=== PATIENT | female | born 1960 | race Caucasian/White ===

== ENCOUNTER 2022-10-07 22:26 | Inpatient (IN) ==
[2022-10-07] MEDS ORDERED: fentaNYL citrate PF 100 MCG/2 ML VIAL ONE (22:37)
[2022-10-07] MEDS ORDERED: ceFAZolin 2000MG 2,000 MG/15 ML SYR IV STA (22:44)
[2022-10-07] MEDS ORDERED: fentaNYL citrate PF 100 MCG/2 ML VIAL IV STA (22:44)
[2022-10-07] MEDS ORDERED: DIPHTHERIA/TETANUS/PERTUSSIS Vaccine (Tdap, Age 7+yrs) 0.5mL SYR/VL IM ONE (22:44)
[2022-10-07] MEDS ORDERED: ONDANSETRON INJ 2 MG/ML 2 ML VIAL IV STA (22:44)
[2022-10-07] MEDS ORDERED: SODIUM CHLORIDE 0.9% 1000ML 1,000 ML IV SCH (22:45)
--- NOTE | 2022-10-07 22:46 | Emergency Department Note ---
Impression & Plan Ankle fracture, right ADMIT ED Provider Note HPI: The patient is a 62-year-old female who presents the emergency department with open fracture and dislocation of the right ankle. Patient states that approximately 45 minutes prior to arrival to the ED she was in the foyer of her home when she slipped on some urine from her pet dog that she did not see, she states she does not remember exactly what happened next but she had acute pain in her right ankle and her left knee. On arrival here to the ED the patient has obvious deformity of her left knee consistent with likely lateral patellar dislocation, patient is also noted to have an obvious deformity of the right ankle with lateral displacement of the right foot and a small bleeding wound to the medial aspect of the right ankle near the medial malleoli consistent with open fracture. Patient does have motor and sensory function intact distally in the toes of the right foot on arrival and does have a palpable dorsalis pedis pulse on arrival. Patient denies any other injuries, denies hitting her head, she is alert and oriented on arrival. Patient arrives via EMS, received morphine in route. ROS: - Per HPI Differential Diagnosis: Open fracture of the right ankle, trimalleolar fracture of the right ankle, left knee dislocation, left knee/patellar dislocation, left knee fracture amongst other potential pathologies. *Outpatient medications and allergy history reviewed. *Pertinent external medical records reviewed. 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 with approximately 1 cm open wound to the medial aspect of the right ankle with minimal active bleeding, no exposed bone, malformation of the left knee consistent with lateral patellar dislocation, there is a palpable dorsalis pedis pulse in the right foot, range of motion is intact distally in the digits of the right foot with capillary refill less than 2 seconds in the great toe of the right foot, there is a palpable dorsalis pedis pulse in the left foot on arrival with motor and sensory function also intact distally in the left foot Skin: No evidence of rash, small open wound to the medial aspect of the right ankle as noted above Neuro: Alert, no focal deficits Psychiatric: Cooperative engineering teacher: (As interpreted by myself): - An order was placed for continuous cardiac monitoring - Patient was noted to be in sinus rhythm with a rate of 95 EKG: (As interpreted by myself): Rate: 103 Rhythm: Sinus tachycardia Intervals: Within normal limits ST changes: No ST elevation Time: 2232 Interventions provided in ED: -IV morphine, IV Zofran, IV Reglan, IV fentanyl, IV Ancef, Tdap Right ankle fracture dislocation reduction: Patient was sedated with IV ketamine (please see separate procedure note for sedation details) Utilizing gentle traction with lateral pressure on the right foot, satisfactory alignment was achieved of the fracture/dislocation. Kerlix bandage with 4 x 4 was placed over the open component of the wound with good hemostasis achieved Soft gauze dressing was placed and long posterior splint placed by the ED warehouse technician under my supervision Long posterior splint was dressed with Kerlix bandage Patient tolerated the procedure well, on reassessment capillary refill is less than 2 seconds in the digits of the right foot, patient is able to move the digits of the right foot on command Right ankle fracture dislocation reduction #2: Posterior splint with overlying Kerlix dressing was removed Utilizing gentle traction with lateral pressure on the right foot, improved alignment was achieved in regards to lateral displacement of right ankle fracture dislocation Kerlix bandage with 4 x 4 was placed over the open component of the wound with good hemostasis achieved Soft gauze dressing was placed and long posterior splint placed by the ED warehouse technician under my supervision Short stirrup splint was placed over the long posterior splint Long posterior splint and short stirrup splint was dressed with Kerlix bandage Patient tolerated the procedure well, on reassessment capillary refill is less than 2 seconds in the digits of the right foot, patient is able to move the digits of the right foot on command Repeat x-ray imaging of the right ankle shows improved tibiotalar alignment of the fracture dislocation of the right ankle status post splint placement Medical Decision Making: Patient presented to the emergency department with an open fracture of the right ankle and apparent patellar dislocation of the left knee. Shortly after the patient arrived, given the degree of malformation of the right ankle I did have concern for neurovascular compromise developing in the R foot and therefore patient was given a dose of IV fentanyl and reduction was performed urgently at the bedside with improved alignment grossly. Patient tolerated this initial reduction well, neurovascular status remained intact with a palpable dorsalis pedis pulse following this reduction and motor and sensory function intact distally in the digits of the right foot On x-ray imaging patient has what appears to be a trimalleolar fracture with mortise disruption, there is an open component to the medial aspect of the right ankle with minimal active bleeding. X-ray imaging of the left knee also shows evidence of lateral patellar dislocation as well as suspected. Open wound to the medial aspect of the right ankle with mild bleeding did respond well to pressure with good hemostasis with a Kerlix bandage. I did discuss the patient 's presentation with on-call orthopedics, Dr. Jones, who reviewed the x-ray images, as well as photographs of the ankle malformation injury including the open component of the injury via [place] text. Dr. Jones recommended splint placement and reduction of the fracture/dislocation further and he will plan at this time for admission to the hospitalist service and operative intervention tomorrow. Following the initial reduction there is still significant displacement with mortise disruption of the right ankle therefore following our discussion patient opted for sedation for reduction of the fracture, as well as dislocation reduction of left-sided patellar dislocation noted on x-ray imaging of the left knee. Patient was sedated utilizing IV ketamine, this was performed by my colleague, Dr. Magallanes, please see his procedure note for full details of the sedation. In addition, Dr. Maglalanes performed successful reduction of the patient's left-sided patellar dislocation, please see his procedure note for details. Following reduction and posterior splint placement, x-ray imaging was reviewed again with on-call orthopedics, Dr. Jones, who at this time recommended placing a stirrup splint in addition to the posterior splint with some gentle pressure applied to the lateral aspect of the right foot to improve tibiotalar alignment, plan at this time is still per Dr. Jones is for operative intervention tomorrow afternoon. With the assistance of the ED warehouse technician and bedside RN, the initial posterior long splint was removed and a new posterior long splint and additional stirrup splint were then placed with gentle pressure applied to the lateral aspect of the right foot with goal of improved tibiotalar alignment of the fracture dislocation. This was performed successfully without the need for sedation, on reevaluation neurovascular function is intact distally in the digits of the right foot. Repeat x-ray imaging of the fracture dislocation following the second splint placement with both posterior and stirrup components does show improved alignment of the tibia on the talus per my interpretation. The patient was given multiple doses of pain medicine including fentanyl, morphine, given Zofran for nausea and then eventually Reglan as she had a second episode of vomiting while here in the ED. Patient's nausea and vomiting did improve with Reglan. I discussed all the above findings with the patient, she is in agreement for admission at this time and is aware that Dr. Jones will plan on operative intervention tomorrow. [facility] hospitalist service was consulted for admission and the patient was placed for admission in stable condition. Consultants: -Orthopedic Surgery, Dr. Jones -Hospitalist, Dr. Villalba Disposition discussion held by myself with: Patient Diagnosis: 1. Open fracture of the right ankle, acute 2. Left-sided patellar dislocation, acute Disposition: Admission Yash Pimentel DO Emergency Medicine Past Med/Surg History Medical History (Updated 10/08/22 @ 02:06 by Yash Pimentel DO) Arthritis Surgical History (Updated 08/19/22 @ 09:57 by Palak Hardy RN) H/O colonoscopy H/O tubal ligation History of bunionectomy Family History (Updated 08/19/22 @ 09:55 by Palak Hardy RN) Aunt Cancer Brother Diabetes Mother Stroke Father Hypertension Heart disease Social History (Updated 08/19/22 @ 09:51 by Palak Hardy RN) Smoking Status: Unknown if ever smoked Hx Alcohol Use: Yes Alcohol type: hard liquor Alcohol Intake Frequency: Monthly or Less Hx Substance Use: No Preferred Language: Urdu marital status: current occupational status: retired How many Children do You have: 1 Feels Safe at Home: Yes Diet: diabetic during the past year weight has: remained stable Allergies Allergies Allergy/AdvReac Type Severity Reaction Status Date / Time No Known Allergies Allergy Verified 10/07/22 22:54 Home Meds Home Medications Medication Instructions Recorded Confirmed amlodipine 10 mg tablet 10 mg PO DAILY 10/18/20 10/07/22 atenolol 50 mg tablet 50 mg PO DAILY 10/18/20 10/07/22 lisinopril 40 mg tablet 40 mg PO DAILY 10/18/20 10/07/22 magnesium oxide 400 mg (241.3 mg 400 mg PO DAILY 10/18/20 10/07/22 magnesium) tablet dulaglutide 1.5 mg/0.5 mL 3 mg subcut WK 08/19/22 10/07/22 subcutaneous pen injector (Trulicity) trazodone 50 mg tablet 50 mg PO HS 08/19/22 10/07/22 venlafaxine 150 mg 150 mg PO DAILY 08/19/22 10/07/22 capsule,extended release 24 hr acetaminophen 500 mg tablet 1,000 mg PO DIRECTED PRN Pain 10/07/22 10/07/22 (Tylenol Extra Strength) diphenhydramine 25 1 tab PO HS PRN Sleep 10/07/22 10/07/22 mg-acetaminophen 500 mg tablet (Tylenol PM Extra Strength) multivitamin 1 tab PO DAILY 10/07/22 10/07/22 Results & Data (ED) Vital Signs Vital Signs - 24 hr 10/07/22 22:37 10/07/22 22:33 10/07/22 22:59 Temperature 36.9 C Temperature Source Temporal Artery Scan Pulse Rate 97 H 104 H Pulse Rate [Right Finger] 104 H Pulse Rate from SpO2 Sensor Respiratory Rate 20 21 Respiratory Effort / Characteristics Non-Labored Spontaneous Respiratory Depth Normal Respiratory Pattern Regular Blood Pressure 131/99 Blood Pressure [Right Arm] 152/90 H Blood Pressure Mean 109 Blood Pressure Mean [Right Arm] 110 Pulse Oximetry 93 94 Oxygen Delivery Method Room Air Room Air Oxygen Flow Rate Sepsis Recent Fever Within 48 Hours No Sepsis New/Unexplained Change in Mental Status N/A Sepsis Action Taken by Nursing No Action Required End-Tidal CO2 10/07/22 23:31 10/07/22 22:34 10/07/22 22:35 Temperature Temperature Source Pulse Rate 105 H 102 H Pulse Rate [Right Finger] 99 H Pulse Rate from SpO2 Sensor 106 H 100 H Respiratory Rate 21 23 15 Respiratory Effort / Characteristics Respiratory Depth Respiratory Pattern Blood Pressure Blood Pressure [Right Arm] 152/90 H Blood Pressure Mean Blood Pressure Mean [Right Arm] 110 Pulse Oximetry 99 94 95 Oxygen Delivery Method Non-rebreather Oxygen Flow Rate 10 Sepsis Recent Fever Within 48 Hours Sepsis New/Unexplained Change in Mental Status Sepsis Action Taken by Nursing End-Tidal CO2 10/07/22 22:40 10/07/22 22:45 10/07/22 22:50 Temperature Temperature Source Pulse Rate 104 H 100 H 100 H Pulse Rate [Right Finger] Pulse Rate from SpO2 Sensor 104 H 100 H 102 H Respiratory Rate 21 20 16 Respiratory Effort / Characteristics Respiratory Depth Respiratory Pattern Blood Pressure Blood Pressure [Right Arm] Blood Pressure Mean Blood Pressure Mean [Right Arm] Pulse Oximetry 96 92 95 Oxygen Delivery Method Oxygen Flow Rate Sepsis Recent Fever Within 48 Hours Sepsis New/Unexplained Change in Mental Status Sepsis Action Taken by Nursing End-Tidal CO2 10/07/22 22:55 10/07/22 23:00 10/07/22 23:00 Temperature Temperature Source Pulse Rate 98 H 103 H Pulse Rate [Right Finger] Pulse Rate from SpO2 Sensor 99 H 105 H Respiratory Rate 21 21 Respiratory Effort / Characteristics Respiratory Depth Respiratory Pattern Blood Pressure 152/90 H Blood Pressure [Right Arm] Blood Pressure Mean 110 Blood Pressure Mean [Right Arm] Pulse Oximetry 93 94 Oxygen Delivery Method Oxygen Flow Rate Sepsis Recent Fever Within 48 Hours Sepsis New/Unexplained Change in Mental Status Sepsis Action Taken by Nursing End-Tidal CO2 10/07/22 23:05 10/07/22 23:10 10/07/22 23:15 Temperature Temperature Source Pulse Rate 98 H 98 H 100 H Pulse Rate [Right Finger] Pulse Rate from SpO2 Sensor 98 H 98 H 101 H Respiratory Rate 18 20 17 Respiratory Effort / Characteristics Respiratory Depth Respiratory Pattern Blood Pressure Blood Pressure [Right Arm] Blood Pressure Mean Blood Pressure Mean [Right Arm] Pulse Oximetry 94 90 91 Oxygen Delivery Method Oxygen Flow Rate Sepsis Recent Fever Within 48 Hours Sepsis New/Unexplained Change in Mental Status Sepsis Action Taken by Nursing End-Tidal CO2 10/07/22 23:20 10/07/22 23:25 10/07/22 23:30 Temperature Temperature Source Pulse Rate 101 H 102 H 99 H Pulse Rate [Right Finger] Pulse Rate from SpO2 Sensor 101 H 103 H 99 H Respiratory Rate 17 21 21 Respiratory Effort / Characteristics Respiratory Depth Respiratory Pattern Blood Pressure Blood Pressure [Right Arm] Blood Pressure Mean Blood Pressure Mean [Right Arm] Pulse Oximetry 93 91 100 Oxygen Delivery Method Oxygen Flow Rate Sepsis Recent Fever Within 48 Hours Sepsis New/Unexplained Change in Mental Status Sepsis Action Taken by Nursing End-Tidal CO2 39 31 10/07/22 23:31 10/07/22 23:31 10/07/22 23:35 Temperature Temperature Source Pulse Rate 100 H Pulse Rate [Right Finger] Pulse Rate from SpO2 Sensor 99 H Respiratory Rate 17 Respiratory Effort / Characteristics Respiratory Depth Respiratory Pattern Blood Pressure 152/90 H 160/96 H Blood Pressure [Right Arm] Blood Pressure Mean 110 117 Blood Pressure Mean [Right Arm] Pulse Oximetry 99 Oxygen Delivery Method Oxygen Flow Rate Sepsis Recent Fever Within 48 Hours Sepsis New/Unexplained Change in Mental Status Sepsis Action Taken by Nursing End-Tidal CO2 33 10/07/22 23:35 10/07/22 23:37 10/07/22 23:37 Temperature Temperature Source Pulse Rate 104 H 103 H Pulse Rate [Right Finger] Pulse Rate from SpO2 Sensor 103 H 103 H Respiratory Rate 15 10 L Respiratory Effort / Characteristics Respiratory Depth Respiratory Pattern Blood Pressure 178/112 H Blood Pressure [Right Arm] Blood Pressure Mean 134 Blood Pressure Mean [Right Arm] Pulse Oximetry 100 99 Oxygen Delivery Method Oxygen Flow Rate Sepsis Recent Fever Within 48 Hours Sepsis New/Unexplained Change in Mental Status Sepsis Action Taken by Nursing End-Tidal CO2 31 34 10/07/22 23:40 10/07/22 23:40 10/07/22 23:45 Temperature Temperature Source Pulse Rate 108 H Pulse Rate [Right Finger] Pulse Rate from SpO2 Sensor 109 H Respiratory Rate 9 L Respiratory Effort / Characteristics Respiratory Depth Respiratory Pattern Blood Pressure 174/107 H 169/110 H Blood Pressure [Right Arm] Blood Pressure Mean 129 129 Blood Pressure Mean [Right Arm] Pulse Oximetry 100 Oxygen Delivery Method Oxygen Flow Rate Sepsis Recent Fever Within 48 Hours Sepsis New/Unexplained Change in Mental Status Sepsis Action Taken by Nursing End-Tidal CO2 32 10/07/22 23:45 10/08/22 00:26 Temperature Temperature Source Pulse Rate 106 H Pulse Rate [Right Finger] 98 H Pulse Rate from SpO2 Sensor 107 H Respiratory Rate 11 L 16 Respiratory Effort / Characteristics Non-Labored Spontaneous Respiratory Depth Normal Respiratory Pattern Blood Pressure Blood Pressure [Right Arm] 161/99 H Blood Pressure Mean Blood Pressure Mean [Right Arm] 119 Pulse Oximetry 99 95 Oxygen Delivery Method Nasal Cannula Oxygen Flow Rate 2 Sepsis Recent Fever Within 48 Hours Sepsis New/Unexplained Change in Mental Status Sepsis Action Taken by Nursing End-Tidal CO2 37 Laboratory Data 10/07/22 22:36 10/07/22 22:36 Lab Results 10/07/22 10/07/22 10/07/22 Range/Units 22:36 22:36 22:36 WBC 9.82 (4.8-10.8) K/ul RBC 4.22 (4.20-5.40) M/uL Hgb 13.0 (12.0-16.0) g/dl Hct 37.8 (37.0-47.0) % MCV 89.6 (80.0-100.0) fL MCH 30.8 (25.0-34.0) pg MCHC 34.4 (32.0-36.0) g/dL RDW Std Deviation 43.1 (36.4-46.3) fL RDW Coeff of [place]yllan 13.2 (11.5-14.5) % Plt Count 239 (130-400) K/uL MPV 10.6 (9.4-12.4) fL Immature Gran % (Auto) 0.3 % Neut % (Auto) 63.6 % Lymph % (Auto) 25.4 % [place] % (Auto) 6.1 % Eos % (Auto) 3.8 % Baso % (Auto) 0.8 % Neut # (Auto) 6.25 (1.40-6.50) K/uL Lymph # (Auto) 2.49 (1.2-3.4) K/uL [place] # (Auto) 0.60 H (0.11-0.59) K/uL Eos # (Auto) 0.37 (0-0.50) K/uL Baso # (Auto) 0.08 (0-0.2) K/uL Immature Gran # (Auto) 0.03 (0.01-0.20) K/uL PT 11.2 (9.0-12.0) Seconds INR 1.0 (0.9-1.1) Sodium 136 (136-145) mmol/L Potassium 4.2 (3.5-5.1) mmol/L Chloride 105 (98-107) mmol/L Carbon Dioxide 23 (21-32) mmol/L Anion Gap 8 (3-11) BUN 24 H (6-23) mg/dl Creatinine 1.32 H (0.6-1.2) mg/dl Est Cr Clr Drug Dosing 62.9 ml/min Est GFR ( Amer) 50.3 ml/min Est GFR (Non-Af Amer) 43.4 ml/min BUN/Creatinine Ratio 18.2 (10-20) Glucose 143 H (70-99(Fasting)) mg/dl Calcium 9.3 (8.6-10.3) mg/dl Total Bilirubin 0.6 (0.2-1.0) mg/dl AST 18 (13-39) U/L ALT 16 (7-52) U/L Alkaline Phosphatase 53 (34-104) U/L Total Protein 7.4 (6.0-8.3) gm/dl Albumin 4.3 (3.4-5.0) gm/dl Globulin 3.1 (2.5-4.0) gm/dl Albumin/Globulin Ratio 1.4 (0.9-2) SARS-CoV-2, RNA, NAAT (NEGATIVE) 10/07/22 10/08/22 Range/Units 23:36 00:41 WBC (4.8-10.8) K/ul RBC (4.20-5.40) M/uL Hgb (12.0-16.0) g/dl Hct (37.0-47.0) % MCV (80.0-100.0) fL MCH (25.0-34.0) pg MCHC (32.0-36.0) g/dL RDW Std Deviation (36.4-46.3) fL RDW Coeff of [place]yllan (11.5-14.5) % Plt Count (130-400) K/uL MPV (9.4-12.4) fL Immature Gran % (Auto) % Neut % (Auto) % Lymph % (Auto) % [place] % (Auto) % Eos % (Auto) % Baso % (Auto) % Neut # (Auto) (1.40-6.50) K/uL Lymph # (Auto) (1.2-3.4) K/uL [place] # (Auto) (0.11-0.59) K/uL Eos # (Auto) (0-0.50) K/uL Baso # (Auto) (0-0.2) K/uL Immature Gran # (Auto) (0.01-0.20) K/uL PT (9.0-12.0) Seconds INR (0.9-1.1) Sodium (136-145) mmol/L Potassium (3.5-5.1) mmol/L Chloride (98-107) mmol/L Carbon Dioxide (21-32) mmol/L Anion Gap (3-11) BUN (6-23) mg/dl Creatinine (0.6-1.2) mg/dl Est Cr Clr Drug Dosing ml/min Est GFR ( Amer) ml/min Est GFR (Non-Af Amer) ml/min BUN/Creatinine Ratio (10-20) Glucose (70-99(Fasting)) mg/dl Calcium (8.6-10.3) mg/dl Total Bilirubin (0.2-1.0) mg/dl AST (13-39) U/L ALT (7-52) U/L Alkaline Phosphatase (34-104) U/L Total Protein (6.0-8.3) gm/dl Albumin (3.4-5.0) gm/dl Globulin (2.5-4.0) gm/dl Albumin/Globulin Ratio (0.9-2) SARS-CoV-2, RNA, NAAT NEGATIVE Cancelled (NEGATIVE) Administered Medications Discontinued Medications Diphtheria/Pertussis/Tetanus Vacc (Diphtheria/Tetanus/Pertussis Vaccine (Tdap, Age 7+Yrs) 0.5ml Syr/Vl) 0.5 ml IM .ONCE ONE Stop: 10/07/22 22:45 Last Admin: 10/07/22 22:53 Dose: 0.5 ml Documented By: ASW Fentanyl Citrate (Fentanyl Citrate Pf 100 Mcg/2 Ml Vial) Confirm Administered Dose 100 mcg .ROUTE .STK-MED ONE Stop: 10/07/22 22:38 Last Increment: 10/07/22 22:44 Dose: 50 mcg Documented By: ASW Fentanyl Citrate (Fentanyl Citrate Pf 100 Mcg/2 Ml Vial) 50 mcg IV NOW STA Stop: 10/07/22 22:45 Last Admin: 10/07/22 22:48 Dose: Not Given Documented By: ASW Sodium Chloride (Nss 1000ml) 1,000 mls @ 999 mls/hr IV .Q1H1M SAMANTHA Stop: 10/07/22 23:45 Last Infusion: 10/07/22 23:59 Dose: 0 mls/hr Documented By: Admin: 10/07/22 22:48 Dose: 999 mls/hr Documented By: ASW Cefazolin Sodium (Ancef 2000mg) 2,000 mg in 15 mls @ 3.75 mls/min IV NOW STA Stop: 10/07/22 22:47 Last Admin: 10/07/22 22:53 Dose: 3.75 mls/min Documented By: ESSENCEW Ketamine HCl (Ketamine Hcl Inj 50 Mg/Ml 10 Ml Vial) Confirm Administered Dose 500 mg .ROUTE .STK-MED ONE Stop: 10/07/22 23:26 Last Increment: 10/07/22 23:47 Dose: 100 mg Documented By: ASW Metoclopramide HCl (Metoclopramide Hcl Inj 5 Mg/Ml 2 Ml Vial) 10 mg IV NOW STA Stop: 10/08/22 00:45 Last Admin: 10/08/22 00:47 Dose: Not Given Documented By: ASW Metoclopramide HCl (Metoclopramide Hcl Inj 5 Mg/Ml 2 Ml Vial) Confirm Administered Dose 10 mg .ROUTE .STK-MED ONE Stop: 10/08/22 00:45 Last Admin: 10/08/22 00:47 Dose: 10 mg Documented By: ESSENCEW Morphine Sulfate (Morphine Sulfate 4 Mg/Ml 1 Ml Carp\Vial) Confirm Administered Dose 4 mg .ROUTE .STK-MED ONE Stop: 10/08/22 00:07 Last Admin: 10/08/22 00:14 Dose: 4 mg Documented By: KATYA Morphine Sulfate (Morphine Sulfate 4 Mg/Ml 1 Ml Carp\Vial) 4 mg IV NOW STA Stop: 10/08/22 00:11 Last Admin: 10/08/22 00:14 Dose: Not Given Documented By: ESSENCEW Ondansetron HCl (Ondansetron Inj 2 Mg/Ml 2 Ml Vial) 4 mg IV NOW STA Stop: 10/07/22 22:45 Last Admin: 10/07/22 22:48 Dose: 4 mg Documented By: ESSENCEW Discharge Plan Visit Data Chief Complaint: Ankle Pain Stated Complaint: FALL, OPEN ANKLE FX, KNEE DEFORMITY ED Provider: Yash Pimentel Discharge Problem: Ankle fracture, right Forms Stand Alone Forms: My [facility] Prescriptions Prescriptions: No Action venlafaxine 150 mg capsule,extended release 24hr 150 mg PO DAILY Trulicity 1.5 mg/0.5 mL pen injector 3 mg subcut WK Rx Instructions: SATURDAYS trazodone 50 mg tablet 50 mg PO HS magnesium oxide 400 mg (241.3 mg magnesium) tablet 400 mg PO DAILY amlodipine 10 mg tablet 10 mg PO DAILY lisinopril 40 mg Tablet 40 mg PO DAILY atenolol 50 mg tablet 50 mg PO DAILY multivitamin Tablet 1 tab PO DAILY acetaminophen [Tylenol Extra Strength] 500 mg Tablet 1,000 mg PO DIRECTED PRN (Reason: Pain) diphenhydramine-acetaminophen [Tylenol PM Extra Strength] 25-500 mg Tablet 1 tab PO HS PRN (Reason: Sleep) Referrals Referrals: Earnest West DO [Primary Care Provider] - Ankle fracture, right Qualifiers: Encounter type: initial encounter Fracture type: open
[2022-10-07 22:59] LABS: Basophils # (auto) 0.08 K/uL (0-0.2); Basophils % (auto) 0.8 %; Eosinophils # (auto) 0.37 K/uL (0-0.50); Eosinophils % (auto) 3.8 %; Hematocrit (blood only) 37.8 % (37.0-47.0); Immature Granulocytes # (auto) 0.03 K/uL (0.01-0.20); Immature Granulocytes % (auto) 0.3 %; Lymphocytes # (auto) 2.49 K/uL (1.2-3.4); Lymphocytes % (auto) 25.4 %; Mean Corpuscular Hemoglobin 30.8 pg (25.0-34.0); Mean Corpuscular Hgb Conc 34.4 g/dL (32.0-36.0); Mean Corpuscular Volume 89.6 fL (80.0-100.0); Mean Platelet Volume 10.6 fL (9.4-12.4); Monocytes % (auto) 6.1 %; Neutrophils # (auto) 6.25 K/uL (1.40-6.50); Neutrophils % (auto) 63.6 %; Platelet Count 239 K/uL (130-400); RDW Coefficient of Variation 13.2 % (11.5-14.5); RDW Standard Deviation 43.1 fL (36.4-46.3); Red Blood Count 4.22 M/uL (4.20-5.40); White Blood Count 9.82 K/ul (4.8-10.8)
[2022-10-07 23:17] LABS: Albumin Globulin Ratio 1.4 (0.9-2); Albumin Level 4.3 gm/dl (3.4-5.0); BUN Creatinine Ratio 18.2 (10-20); Bilirubin,Total 0.6 mg/dl (0.2-1.0); Calcium 9.3 mg/dl (8.6-10.3); Creatinine Clr Calc Pharmacy 62.9 ml/min; Est GFR (African American) 50.3 ml/min; Est GFR (Non-African American) 43.4 ml/min; Globulin 3.1 gm/dl (2.5-4.0); Potassium 4.2 mmol/L (3.5-5.1); Total Protein 7.4 gm/dl (6.0-8.3)
[2022-10-07] MEDS ORDERED: KETAMINE HCL INJ 50 MG/ML 10 ML VIAL ONE (23:25)
[2022-10-07 23:35] LABS: Prothrombin Time 11.2 Seconds (9.0-12.0)
--- NOTE | 2022-10-07 23:49 | Emergency Department Note ---
ED Visit Note Sedation note: I was asked by Dr. PERES to provide procedural sedation for this patient for reduction of a open fracture dislocation of the right ankle as well as a left patella dislocation. Personally evaluated the patient patient has a class III airway has had no anesthesia complications, last meal was at 7:30 PM this evening. Patient has consented and signed the consent form for sedation Patient was given 100 mg of IV ketamine without any complications and maintain her airway with pulse oximetry 100% with normal vital signs throughout the p rocedure Procedure for dislocation of left patella: Patient also had a closed reduction of the left patella dislocation by me with gentle traction of the lateral located patella with hyperextension. The patient tolerated the procedure well patient neurovascularly intact distally .
[2022-10-08] MEDS ORDERED: MoRPHine SULFATE 4 MG/ML 1 ML CARP\\VIAL ONE (00:06)
[2022-10-08] MEDS ORDERED: MoRPHine SULFATE 4 MG/ML 1 ML CARP\\VIAL IV STA (00:10)
[2022-10-08] MEDS ORDERED: METOCLOPRAMIDE HCL INJ 5 MG/ML 2 ML VIAL ONE (00:44)
[2022-10-08] MEDS ORDERED: METOCLOPRAMIDE HCL INJ 5 MG/ML 2 ML VIAL IV STA (00:44)
[2022-10-08] MEDS ORDERED: GLUCOSE 10 TAB/TUBE PO PRN (03:34)
[2022-10-08] MEDS ORDERED: GLUCAGON FOR INJ 1 MG VIAL SQ PRN (03:34)
[2022-10-08] MEDS ORDERED: GLUCOSE 40% GEL 15 GM TUBE PO PRN (03:34)
[2022-10-08] MEDS ORDERED: DEXTROSE 50% 50 ML SYRINGE IV PRN (03:34)
[2022-10-08] MEDS ORDERED: POLYETHYLENE (MIRALAX) 17 GM PACK PO PRN (03:34)
[2022-10-08] MEDS ORDERED: CARBOHYDRATES FOR HYPOGLYCEMIA PO PRN (03:34)
[2022-10-08] MEDS ORDERED: ACETAMINOPHEN 325 MG TAB PO PRN (03:34)
--- NOTE | 2022-10-08 05:03 | History & Physical Report ---
Date of Service October 08, 2022 Assessment & Plan (1) Ankle fracture, right: Plan: Patient is a 62-year-old female with past medical history of obesity, DCIS, hypertension, controlled DM 2, diabetic nephropathy who presents to the hospital for evaluation of ankle injury. Patient found to have right open ankle fracture and left patellar dislocation, both of which have been reduced. Patient is hemodynamically stable and neurovascularly intact. Patient will be admitted to the hospital with orthopedic surgical consultation. -Admit to [facility] [place] -orthopedic surgery consulted, appreciate recommendations. Surgical intervention to be done on 10/08/2022 -N.p.o. Medications converted to IV where able -Pain control with IV morphine as needed, IV Tylenol available as well -Zofran as needed (2) Left knee dislocation: Plan: - Status postreduction -Orthopedic consultation as above (3) Type 2 diabetes mellitus: Plan: - Controlled with last A1c from clinic at 6.1 in June of this year -Convert to basal bolus insulin with sliding scale -Carb consistent diet when able -Continue rosuvastatin 20 mg daily (4) Diabetic nephropathy: Plan: - Baseline GFR of approximately 45 -Currently at baseline (5) Hypertension: Plan: - N.p.o. 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 Soria for lumpectomy in October Plan Disposition: Admit to [facility] [place] for orthopedic procedure Diet: N.p.o. for now, LR at 150 cc/h DVT prophylaxis: SCDs on left leg, hold pharmacologic DVT prophylaxis until after surgical procedure CODE STATUS: Full code Admission and Anticipated Discharge Date Admission Date: October 08, 2022 History of Present Illness Chief Complaint: Ankle Pain Primary Care Provider: Earnest West DO Patient is a 62-year-old female with past medical history of obesity, DCIS, hypertension, controlled DM 2, diabetic nephropathy who presents to the hospital for evaluation of ankle injury. Unfortunately, it seems that the patient was at home when she was walking on the hard floor and her 4-year and she slipped on urine that was left by her dog that she did not see. She fell to the floor and does not recall exactly what happened, however, she recognized that she had immediate ankle pain on the right and left knee pain with gross deformities of both. She came to the emergency department via EMS for further treatment and recommendations. ED course: Patient was brought back evaluated by one of our ED providers. She had multiple x-rays that confirmed trimalleolar fracture with mortise disruption and open component of the medial malleolus on the right ankle. There is also lateral knee dislocation on the left knee. The case was discussed with Dr. Jones, the on-call orthopedic surgeon, who recommended splint placement and reduction of the fracture who will perform operative intervention on 10/08/2022. See ED provider notes for specific details regarding reduction and splinting. Lab work was overall unremarkable. Patient was given pain medication and the hospitalist service was consulted for admission to the hospital for further management with orthopedic consultation. Allergies Allergy/AdvReac Type Severity Reaction Status Date / Time No Known Allergies Allergy Verified 10/07/22 22:54 Home Medications Medication Instructions Recorded Confirmed Type amlodipine 10 mg tablet 10 mg PO DAILY 10/18/20 10/07/22 History atenolol 50 mg tablet 50 mg PO DAILY 10/18/20 10/07/22 History lisinopril 40 mg tablet 40 mg PO DAILY 10/18/20 10/07/22 History magnesium oxide 400 mg (241.3 mg 400 mg PO DAILY 10/18/20 10/07/22 History magnesium) tablet dulaglutide 1.5 mg/0.5 mL 3 mg subcut WK 08/19/22 10/07/22 History subcutaneous pen injector (Trulicity) trazodone 50 mg tablet 50 mg PO HS 08/19/22 10/07/22 History venlafaxine 150 mg 150 mg PO DAILY 08/19/22 10/07/22 History capsule,extended release 24 hr acetaminophen 500 mg tablet 1,000 mg PO DIRECTED PRN Pain 10/07/22 10/07/22 History (Tylenol Extra Strength) diphenhydramine 25 1 tab PO HS PRN Sleep 10/07/22 10/07/22 History mg-acetaminophen 500 mg tablet (Tylenol PM Extra Strength) multivitamin 1 tab PO DAILY 10/07/22 10/07/22 History Past Med/Surg History Medical History Arthritis Surgical History H/O colonoscopy H/O tubal ligation History of bunionectomy Family History Aunt Cancer Brother Diabetes Mother Stroke Father Hypertension Heart disease Social History Smoking Status: Never smoker Hx Alcohol Use: Yes Alcohol type: hard liquor Alcohol Intake Frequency: Monthly or Less Hx Substance Use: No Preferred Language: Greenlandic Communication Ability: Effective marital status: Current Living Situation: Family current occupational status: retired How many Children do You have: 1 Feels Safe at Home: Yes Safety Concerns: Feels Safe At This Time Diet: diabetic during the past year weight has: remained stable Assistive Devices: Denture - Upper and Glasses Review of Systems Review of Systems: All systems reviewed & are unremarkable except as noted in HPI & below Physical Exam Constitutional: WD/WN, vitals as above well developed, well nourished, cooperative and comfortable Eyes: + anicteric sclerae Neck: trachea midline, no thyromegaly Respiratory: normal respiratory effort, lungs clear to auscultation Cardiovascular: RRR, no murmur, no edema Gastrointestinal (Abdomen): normal bowel sounds, soft, nontender, no hepatosplenomegaly Musculoskeletal: Head/Neck/Chest: normocephalic and head atraumatic There is an obvious deformity of the right ankle consistent with open fracture with a small open wound just superior to the medial malleolus with no active bleeding. There is also a lateral patellar dislocation on the left with ecchymoses on the medial aspect of the left knee. Normal capillary refill of both great toes. Palpable pedal pulses bilaterally. Skin: no rashes, warm and dry Neurologic: awake Psychiatric: Orientation: alert and oriented x 3 Results & Data Results & Data Vital Signs (Past 12 Hours) Vital Signs Temp Pulse Pulse Resp BP BP Pulse Ox 10/08/22 04:22 10/08/22 03:38 36.6 C 95 H 18 159/80 H 95 10/08/22 02:46 86 10/08/22 02:50 10/08/22 01:30 100 H 16 132/87 97 10/08/22 01:00 100 H 16 131/89 93 10/08/22 00:30 94 H 16 156/93 H 94 10/08/22 00:25 100 H 16 161/99 H 94 10/08/22 00:15 94 H 16 148/84 H 96 10/08/22 00:10 94 H 16 146/86 H 96 10/08/22 00:05 94 H 16 154/84 H 96 10/08/22 00:00 96 H 16 157/89 H 98 10/08/22 01:49 93 H 20 95 10/08/22 00:26 98 H 16 161/99 H 95 10/07/22 23:45 106 H 11 L 99 10/07/22 23:45 169/110 H 10/07/22 23:40 108 H 9 L 100 10/07/22 23:40 174/107 H 10/07/22 23:37 103 H 10 L 99 10/07/22 23:37 178/112 H 10/07/22 23:35 104 H 15 100 10/07/22 23:35 160/96 H 10/07/22 23:31 152/90 H 10/07/22 23:31 100 H 17 99 10/07/22 23:30 99 H 21 100 10/07/22 23:25 102 H 21 91 10/07/22 23:20 101 H 17 93 10/07/22 23:15 100 H 17 91 10/07/22 23:10 98 H 20 90 10/07/22 23:05 98 H 18 94 10/07/22 23:00 103 H 21 94 10/07/22 23:00 152/90 H 10/07/22 22:55 98 H 21 93 10/07/22 22:50 100 H 16 95 10/07/22 22:45 100 H 20 92 10/07/22 22:40 104 H 21 96 10/07/22 22:35 102 H 15 95 10/07/22 22:34 105 H 23 94 10/07/22 23:31 99 H 21 152/90 H 99 10/07/22 22:59 104 H 21 152/90 H 94 10/07/22 22:33 104 H 10/07/22 22:37 36.9 C 97 H 20 131/99 93 O2 Del Method O2 Flow Rate 10/08/22 04:22 Nasal Cannula 2 10/08/22 03:38 Nasal Cannula 2 10/08/22 02:46 10/08/22 02:50 Nasal Cannula 2 10/08/22 01:30 Nasal Cannula 2 10/08/22 01:00 Nasal Cannula 2 10/08/22 00:30 Nasal Cannula 2 10/08/22 00:25 Nasal Cannula 2 10/08/22 00:15 Nasal Cannula 2 10/08/22 00:10 Nasal Cannula 2 10/08/22 00:05 Nasal Cannula 2 10/08/22 00:00 Nasal Cannula 2 10/08/22 01:49 Nasal Cannula 2 10/08/22 00:26 Nasal Cannula 2 10/07/22 23:45 10/07/22 23:45 10/07/22 23:40 10/07/22 23:40 10/07/22 23:37 10/07/22 23:37 10/07/22 23:35 10/07/22 23:35 10/07/22 23:31 10/07/22 23:31 10/07/22 23:30 10/07/22 23:25 10/07/22 23:20 10/07/22 23:15 10/07/22 23:10 10/07/22 23:05 10/07/22 23:00 10/07/22 23:00 10/07/22 22:55 10/07/22 22:50 10/07/22 22:45 10/07/22 22:40 10/07/22 22:35 10/07/22 22:34 10/07/22 23:31 Non-rebreather 10 10/07/22 22:59 Room Air 10/07/22 22:33 10/07/22 22:37 Room Air Code Status & VTE Plan VTE Prophylaxis Plan VTE Prophylaxis will be ordered: Yes Supervising Physician Co-Signing Physician Notes Attending addendum: I have physically seen this patient, have supervised the medical residents activities, and agree with the H&P unless as otherwise noted. Assessment and Plan: Compound right ankle fracture- Reduced by the ED staff NPO Acetaminophen 1 g IV every 8 hours as needed mild pain or fever Morphine sulfate 4 mg IV every 3 hours as needed for moderate to severe pain Zofran 4 mg IV every 6 hours as needed Ceftriaxone 2 g IV daily Consult orthopedic surgery Left knee dislocation- Reduced by ED staff Consult orthopedic surgery Diabetes mellitus- N.p.o. placed on NovoLog with SSI Hypertension- Hold amlodipine and lisinopril Hydralazine 10 mg IV every 4 hours as needed systolic blood pressure greater than 160 Remaining orders and notations as noted (1) Ankle fracture, right Encounter type: initial encounter Fracture type: open
[2022-10-08] MEDS: MoRPHine SULFATE 2 MG/ML CARP IV PRN ×5 (05:21→18:18)
[2022-10-08] MEDS: LACTATED RINGER'S 1,000 ML IV SCH ×3 (05:22→19:57)
[2022-10-08 06:39] LABS: Hematocrit (blood only) 32.4 % (37.0-47.0); Hemoglobin 11.1 g/dl (12.0-16.0); Mean Corpuscular Hemoglobin 30.9 pg (25.0-34.0); Mean Corpuscular Hgb Conc 34.3 g/dL (32.0-36.0); Mean Corpuscular Volume 90.3 fL (80.0-100.0); Mean Platelet Volume 10.5 fL (9.4-12.4); Platelet Count 226 K/uL (130-400); RDW Coefficient of Variation 13.2 % (11.5-14.5); RDW Standard Deviation 43.3 fL (36.4-46.3); Red Blood Count 3.59 M/uL (4.20-5.40); White Blood Count 14.58 K/ul (4.8-10.8)
--- NOTE | 2022-10-08 06:48 | Hospitalist Progress Note ---
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 Soria outpatient Disposition: Ad[facility] to [facility] for [facility] procedure Diet: N.p.o. for now, LR at 150 cc/h DVT prophylaxis: SCDs on left leg, hold pharmacologic DVT prophylaxis until after surgical procedure CODE STATUS: Full code Admission and Anticipated Discharge Date Admission Date: October 08, 2022 Supervising Physician Co-Signing Physician Notes I personally examined the patient and verified all padilla points of history and exam, discussed case, and agree with decision making with Dr Hurley feeling ok, suspect O2 "requirement" is just that it hasn't been weaned vs less likely atelectasis. medically stable. appreciate ortho input. otherwise as above Subjective Patient is a 62-year-old female with past medical history of obesity, DCIS, hypertension, controlled DM 2, diabetic nephropathy admitted for right open ankle fracture and left patellar dislocation, both of which have been reduced. Patient is hemodynamically stable and neurovascularly intact. Patient will be admitted to the hospital with orthopedic surgical consultation. Pain well controlled this am. Awaiting surgery. Surgery cancelled 10/08/22, anticipate surgery 10/09/22. Review of Systems Review of Systems: reviewed, see HPI Physical Exam Physical Exam: General: patient resting comfortably, NAD, non-toxic in appearance, AA&O x 4, answers questions appropriately and follows commands. Skin: warm, dry, intact, no rashes or lesions HEENT: NC/AT, anicteric sclera, conjunctiva without injection, external ear normal to inspection, nares patent, moist mucus membranes, dentition intact, neck supple, trachea midline, no thyromegaly, no JVD Heart: +S1/S2, regular, no m/r/g Lungs: equal air entry bilaterally, no rales/rhonchi/wheezes Abd: +BS, soft, NT/ND, no masses/organomegaly/ascites Ext: warm, no clubbing/cyanosis or edema. R lower extremity splinted. L patella remains reduced Neuro: nonfocal, patient AA&O x 4, speech intact, no facial droop, moving all extremities on command. Results & Data Results & Data Vital Signs (Past 12 Hours) Vital Signs Height Weight Body Mass Index Blood Pressure Blood Pressure Position Temperature Temperature Source 5 ft 11 in 123.8 kg 38.0 159/80 H Lying 36.6 C Oral 10/08/22 03:38 10/08/22 03:38 10/08/22 03:38 10/08/22 03:38 10/08/22 03:38 10/08/22 03:38 10/08/22 03:38 Pulse Rate Respiratory Rate Pulse Oximetry Oxygen Flow Rate 95 H 18 95 2 10/08/22 03:38 10/08/22 03:38 10/08/22 03:38 10/08/22 04:22 Laboratory Results Abnormal lab results 10/07/22 10/07/22 10/08/22 Range/Units 22:36 22:36 05:58 WBC 14.58 H (4.8-10.8) K/ul RBC 3.59 L (4.20-5.40) M/uL Hgb 11.1 L (12.0-16.0) g/dl Hct 32.4 L (37.0-47.0) % Otero # (Auto) 0.60 H (0.11-0.59) K/uL BUN 24 H (6-23) mg/dl Creatinine 1.32 H (0.6-1.2) mg/dl Glucose 143 H (70-99(Fasting)) mg/dl Resident Activity Tracking Resident Involvement: Resident Care Provided Care Provided: Adult Hospital Medicine (1) Ankle fracture, right Encounter type: initial encounter Fracture type: open
[2022-10-08 07:17] LABS: BUN Creatinine Ratio 19.5 (10-20); Calcium 8.9 mg/dl (8.6-10.3); Creatinine Clr Calc Pharmacy 72.7 ml/min; Est GFR (African American) 57.6 ml/min; Est GFR (Non-African American) 49.7 ml/min; Potassium 4.4 mmol/L (3.5-5.1)
[2022-10-08 07:25] LABS: INR 1.1 (0.9-1.1); Prothrombin Time 11.5 Seconds (9.0-12.0)
[2022-10-08] MEDS: ONDANSETRON INJ 2 MG/ML 2 ML VIAL IV PRN ×2 (07:27→21:51)
--- NOTE | 2022-10-08 08:05 | XRay Report ---
XR ankle RT 2V CLINICAL HISTORY: open fracture reduction COMPARISON: Right ankle radiographs October 07, 2022 performed earlier today. FINDINGS: Overlying cast is noted. There has been no significant change in alignment of the comminut ed, displaced distal diaphyseal fracture of the right fibula as well as a displaced fracture of the m edial malleolus with disruption of the tibiotalar joint. Lateral view demonstrates soft tissue gas an terior to the distal right tibia and fibula consistent with open fracture. IMPRESSION: No significant change in alignment of the comminuted, displaced distal right fibular and tibial fractures with disruption of the tibiotalar joint. Associated soft tissue gas indicates an ope n fracture. ACT 112: Negative or not required by law. Electronically signed by: Rafi Astorga M.D. 10/08/2022 8:04 AM
--- NOTE | 2022-10-08 08:10 | XRay Report ---
RIGHT ANKLE 2 VIEWS CLINICAL HISTORY: Splinting of right ankle. FINDINGS: AP and crosstable lateral views of the right ankle are compared to studies dated 10/07/2022. The examination is performed through a splint, obscuring fine bony detail. There is improved alignme nt of a comminuted spiral fracture of the distal fibular shaft. There are large displaced fragments. There is a vertically oriented fracture of the posterior malleolus, as well as a displaced avulsion f racture of the medial malleolus. The medial malleolar fracture is displaced by approximately 6 mm. Ne ar-anatomic alignment has been restored at the ankle mortise. There is an associated joint effusion. Significant soft tissue swelling is seen around the ankle. Postsurgical change is partially visualize d in the base of the first metatarsal. There is a plantar heel spur. IMPRESSION: Improved alignment of a trimalleolar fracture as compared to previous. Near anatomic alig nment is restored at the ankle mortise. Electronically signed by: Marlon Jain M.D. 10/08/2022 8:09 AM
--- NOTE | 2022-10-08 08:10 | XRay Report ---
XR ankle RT 2V CLINICAL HISTORY: open fracture COMPARISON: Right foot radiographs September 13, 2020. FINDINGS: There is a comminuted, moderately displaced distal diaphyseal fracture of the right fibula . Note is also made of a displaced fracture of the medial malleolus as well as a fracture the posteri or distal right tibia consistent with a trimalleolar fracture. The tibial fracture extends to the ski n. The tibiotalar joint is disrupted. Ankle soft tissue swelling is present. IMPRESSION: Right ankle trimalleolar fracture/dislocation, as described above. Tibial fracture extend s to the skin and may represent an open fracture which could be correlated clinically. ACT 112: Negative or not required by law. Electronically signed by: Rafi Astorga M.D. 10/08/2022 8:08 AM
--- NOTE | 2022-10-08 08:15 | XRay Report ---
LEFT KNEE 2 VIEWS CLINICAL HISTORY: Postreduction examination. FINDINGS: AP and crosstable lateral views of the left knee are compared to study performed earlier th e same day 10/07/2022. The skeletal structures are osteopenic. There has been successful reduction of the dislocated patella with sikh of near-anatomic alignment. No fracture is clearly identified . Advanced degenerative change is seen at the patellofemoral articulation. Minimal narrowing is seen in the medial compartment. There are large marginal osteophytes and patellar enthesophytes. Bony over growth is seen posteriorly along the distal femur and the tibial plateau. There is a joint effusion. Marked prepatellar soft tissue edema is observed. IMPRESSION: 1. There has been successful reduction of the dislocated patella with sikh of near-anatomic al ignment. 2. No fracture is clearly identified by x-ray. If there is clinical concern for occult fracture at th e knee joint a CT scan should be obtained. 3. Joint effusion and marked prepatellar soft tissue swelling. Electronically signed by: Marlon Jain M.D. 10/08/2022 8:13 AM
--- NOTE | 2022-10-08 08:23 | XRay Report ---
LEFT KNEE 2 VIEWS CLINICAL HISTORY: Left knee injury. Deformity. FINDINGS: AP and crosstable lateral views of the left knee are obtained. No prior studies are availab le for comparison at the time of dictation. The skeletal structures are osteopenic. There is lateral dislocation of the patella. No fracture is clearly seen. The joint spaces are not well assessed due t o positioning. There is a joint effusion and marked prepatellar soft tissue swelling. Bony overgrowth is seen along the dorsal aspect of the distal femur and tibial plateau. There is atherosclerotic babak cification of the popliteal artery. IMPRESSION: 1. Lateral patellar dislocation. 2. No fracture is clearly seen. 3. Marked soft tissue swelling and joint effusion. Electronically signed by: Marlon Jain M.D. 10/08/2022 8:22 AM
[2022-10-08] MEDS: INSULIN ASPART PER UNIT CHARGE SC SCH ×4 (08:55→21:57)
[2022-10-08] MEDS: LANTUS PER UNIT CHARGE SQ SCH ×2 (08:57→21:57)
--- NOTE | 2022-10-08 10:17 | Orthopedic Consultation ---
Date of Consultation October 08, 2022 Assessment & Plan (1) Ankle fracture, right: Ankle fracture dislocation was reduced in the emergency room, is currently splinted. Case was discussed with Dr. Jones as well as reviewed with the patient, recommend surgical fixation with external fixator versus open reduction total fixation, will continue n.p.o., nonweightbearing to the right ankle. Plan for surgical intervention later this afternoon with Dr. Jones (2) Left knee dislocation: Patella dislocation was reduced in the emergency room, will continue with knee immobilizer, ice elevation for swelling. She can weight-bear as tolerated with the immobilizer on. States she has a history of patellar dislocations in her teenage years and early 20s. Will likely obtain MRI evaluation as outpatient for further evaluation History of Present Illness Reason for Consultation: right ankle fracture, left patella dislocation Attending Physician: Dayo Schumacher, DO History of Present Illness Zainab is a pleasant 62-year-old female who we are consulted in regards to right ankle fracture and left patella dislocation. She states yesterday evening was in her kitchen and slipped on urine from her puppy which caused her left leg to kick out of the side, which resulted in dislocation of her left kneecap and went down to the ground, she also had obvious deformity to her right ankle. She was brought to the emergency department by ambulance and was confirmed to have a left patella dislocation and right ankle fracture. She states she has a history of left knee issues dating back to when she was in the , has a history of several patellar dislocations. No p.revious injuries to the right ankle but has had bunion surgery on her right foot Allergies Allergy/AdvReac Type Severity Reaction Status Date / Time No Known Allergies Allergy Verified 10/07/22 22:54 Home Medications Medication Instructions Recorded Confirmed Type amlodipine 10 mg tablet 10 mg PO DAILY 10/18/20 10/07/22 History atenolol 50 mg tablet 50 mg PO DAILY 10/18/20 10/07/22 History lisinopril 40 mg tablet 40 mg PO DAILY 10/18/20 10/07/22 History magnesium oxide 400 mg (241.3 mg 400 mg PO DAILY 10/18/20 10/07/22 History magnesium) tablet dulaglutide 1.5 mg/0.5 mL 3 mg subcut WK 08/19/22 10/07/22 History subcutaneous pen injector (Trulicity) trazodone 50 mg tablet 50 mg PO HS 08/19/22 10/07/22 History venlafaxine 150 mg 150 mg PO DAILY 08/19/22 10/07/22 History capsule,extended release 24 hr acetaminophen 500 mg tablet 1,000 mg PO DIRECTED PRN Pain 10/07/22 10/07/22 History (Tylenol Extra Strength) diphenhydramine 25 1 tab PO HS PRN Sleep 10/07/22 10/07/22 History mg-acetaminophen 500 mg tablet (Tylenol PM Extra Strength) multivitamin 1 tab PO DAILY 10/07/22 10/07/22 History Patient History Medical History Arthritis Surgical History H/O colonoscopy H/O tubal ligation History of bunionectomy Family History Aunt Cancer Brother Diabetes Mother Stroke Father Hypertension Heart disease Social History Smoking Status: Never smoker Hx Alcohol Use: Yes Alcohol type: hard liquor Alcohol Intake Frequency: Monthly or Less Hx Substance Use: No Preferred Language: Armenian Communication Ability: Effective marital status: Current Living Situation: Family current occupational status: retired How many Children do You have: 1 Feels Safe at Home: Yes Safety Concerns: Feels Safe At This Time Diet: diabetic during the past year weight has: remained stable Assistive Devices: Denture - Upper and Glasses Review of Systems Review of Systems: All systems reviewed & are unremarkable except as noted in HPI & below Constitutional: no fever, no chills and no sweats Respiratory: no cough and no dyspnea Cardiovascular: no chest pain, no dyspnea and no orthopnea Gastrointestinal: no abdominal pain, no nausea and no vomiting Musculoskeletal: as per Subjective / HPI Physical Exam Physical Exam: Vital Signs Temp 36.5 C 10/08/22 06:50 Pulse 93 H 10/08/22 06:50 Resp 18 10/08/22 06:50 BP 127/75 10/08/22 06:50 Pulse Ox 94 10/08/22 10:19 O2 Del Method Nasal Cannula 10/08/22 10:19 O2 Flow Rate 2 10/08/22 10:19 Intake & Output 10/07/22 10/08/22 10/08/22 18:59 06:59 18:59 Intake Total 1000 / 1000 Output Total 400 / 400 Balance 1000 / 1000 -400 / -400 Weight 123.8 kg Intake: IV 1000 / 1000 Sodium Chlorid e 0.9% 1000ML 1, 1000 / 1000 000 ml @ 999 m ls/hr IV .Q1H1M [facility] Rx#:[id number] Output: Urine 400 / 400 Other: Weight Measureme nt Method Built in [facility] Constitutional: WD/WN, vitals as above no acute distress Respiratory: normal respiratory effort, lungs clear to auscultation no respiratory distress, no labored breathing and does not use accessory muscles Cardiovascular: RRR, no murmur, no edema Musculoskeletal: left knee: mild effusion, no erythema noted. calf soft, non-tender. DP +2. NVDI right ankle: ankle splinted, sensation intact to light touch toes, DP palpable, able to wiggle her toes Results & Data Vital Signs (Past 12 Hours) Vital Signs Temp Pulse Pulse Resp BP BP Pulse Ox 10/08/22 06:50 36.5 C 93 H 18 127/75 95 10/08/22 04:22 10/08/22 03:38 36.6 C 95 H 18 159/80 H 95 10/08/22 02:46 86 10/08/22 02:50 10/08/22 01:30 100 H 16 132/87 97 10/08/22 01:00 100 H 16 131/89 93 10/08/22 00:30 94 H 16 156/93 H 94 10/08/22 00:25 100 H 16 161/99 H 94 10/08/22 00:15 94 H 16 148/84 H 96 10/08/22 00:10 94 H 16 146/86 H 96 10/08/22 00:05 94 H 16 154/84 H 96 10/08/22 00:00 96 H 16 157/89 H 98 10/08/22 01:49 93 H 20 95 10/08/22 00:26 98 H 16 161/99 H 95 10/07/22 23:45 106 H 11 L 99 10/07/22 23:45 169/110 H 10/07/22 23:40 108 H 9 L 100 10/07/22 23:40 174/107 H 10/07/22 23:37 103 H 10 L 99 10/07/22 23:37 178/112 H 10/07/22 23:35 104 H 15 100 10/07/22 23:35 160/96 H 10/07/22 23:31 152/90 H 10/07/22 23:31 100 H 17 99 10/07/22 23:30 99 H 21 100 10/07/22 23:25 102 H 21 91 10/07/22 23:20 101 H 17 93 10/07/22 23:15 100 H 17 91 10/07/22 23:10 98 H 20 90 10/07/22 23:05 98 H 18 94 10/07/22 23:00 103 H 21 94 10/07/22 23:00 152/90 H 10/07/22 22:55 98 H 21 93 10/07/22 22:50 100 H 16 95 10/07/22 22:45 100 H 20 92 10/07/22 22:40 104 H 21 96 10/07/22 22:35 102 H 15 95 10/07/22 22:34 105 H 23 94 10/07/22 23:31 99 H 21 152/90 H 99 10/07/22 22:59 104 H 21 152/90 H 94 10/07/22 22:33 104 H 10/07/22 22:37 36.9 C 97 H 20 131/99 93 O2 Del Method O2 Flow Rate 10/08/22 06:50 Nasal Cannula 3 10/08/22 04:22 Nasal Cannula 2 10/08/22 03:38 Nasal Cannula 2 10/08/22 02:46 10/08/22 02:50 Nasal Cannula 2 10/08/22 01:30 Nasal Cannula 2 10/08/22 01:00 Nasal Cannula 2 10/08/22 00:30 Nasal Cannula 2 10/08/22 00:25 Nasal Cannula 2 10/08/22 00:15 Nasal Cannula 2 10/08/22 00:10 Nasal Cannula 2 10/08/22 00:05 Nasal Cannula 2 10/08/22 00:00 Nasal Cannula 2 10/08/22 01:49 Nasal Cannula 2 10/08/22 00:26 Nasal Cannula 2 10/07/22 23:45 10/07/22 23:45 07/18/23 23:40 10/07/22 23:40 10/07/22 23:37 10/07/22 23:37 10/07/22 23:35 10/07/22 23:35 10/07/22 23:31 10/07/22 23:31 10/07/22 23:30 10/07/22 23:25 10/07/22 23:20 10/07/22 23:15 10/07/22 23:10 10/07/22 23:05 10/07/22 23:00 10/07/22 23:00 10/07/22 22:55 10/07/22 22:50 10/07/22 22:45 10/07/22 22:40 10/07/22 22:35 10/07/22 22:34 10/07/22 23:31 Non-rebreather 10 10/07/22 22:59 Room Air 10/07/22 22:33 10/07/22 22:37 Room Air Diagnostic Findings Laboratory Results WBC 14.58 K/ul (4.8-10.8) H 10/08/22 05:58 RBC 3.59 M/uL (4.20-5.40) L 10/08/22 05:58 Hgb 11.1 g/dl (12.0-16.0) L 10/08/22 05:58 Hct 32.4 % (37.0-47.0) L 10/08/22 05:58 MCV 90.3 fL (80.0-100.0) 10/08/22 05:58 MCH 30.9 pg (25.0-34.0) 10/08/22 05:58 MCHC 34.3 g/dL (32.0-36.0) 10/08/22 05:58 RDW Std Deviation 43.3 fL (36.4-46.3) 10/08/22 05:58 RDW Coeff of Dyllan 13.2 % (11.5-14.5) 10/08/22 05:58 Plt Count 226 K/uL (130-400) 10/08/22 05:58 MPV 10.5 fL (9.4-12.4) 10/08/22 05:58 Immature Gran % (Auto) 0.3 % 10/07/22 22:36 Neut % (Auto) 63.6 % 10/07/22 22:36 Lymph % (Auto) 25.4 % 10/07/22 22:36 [place]oup % (Auto) 6.1 % 10/07/22 22:36 Eos % (Auto) 3.8 % 10/07/22 22:36 Baso % (Auto) 0.8 % 10/07/22 22:36 Neut # (Auto) 6.25 K/uL (1.40-6.50) 10/07/22 22:36 Lymph # (Auto) 2.49 K/uL (1.2-3.4) 10/07/22 22:36 Troup # (Auto) 0.60 K/uL (0.11-0.59) H 10/07/22 22:36 Eos # (Auto) 0.37 K/uL (0-0.50) 10/07/22 22:36 Baso # (Auto) 0.08 K/uL (0-0.2) 10/07/22 22:36 Immature Gran # (Auto) 0.03 K/uL (0.01-0.20) 10/07/22 22:36 PT 11.5 Seconds (9.0-12.0) 10/08/22 05:58 INR 1.1 (0.9-1.1) 10/08/22 05:58 Sodium 137 mmol/L (136-145) 10/08/22 05:58 Potassium 4.4 mmol/L (3.5-5.1) 10/08/22 05:58 Chloride 106 mmol/L (98-107) 10/08/22 05:58 Carbon Dioxide 25 mmol/L (21-32) 10/08/22 05:58 Anion Gap 6 (3-11) 10/08/22 05:58 BUN 23 mg/dl (6-23) 10/08/22 05:58 Creatinine 1.18 mg/dl (0.6-1.2) 10/08/22 05:58 Est Cr Clr Drug Dosing 72.7 ml/min 10/08/22 05:58 Est GFR ( Amer) 57.6 ml/min 10/08/22 05:58 Est GFR (Non-Af Amer) 49.7 ml/min 10/08/22 05:58 BUN/Creatinine Ratio 19.5 (10-20) 10/08/22 05:58 Glucose 116 mg/dl (70-99(Fasting)) H 10/08/22 05:58 POC Glucose 127 mg/dl (70-99) H 10/08/22 08:19 Calcium 8.9 mg/dl (8.6-10.3) 10/08/22 05:58 Total Bilirubin 0.6 mg/dl (0.2-1.0) 10/07/22 22:36 AST 18 U/L (13-39) 10/07/22 22:36 ALT 16 U/L (7-52) 10/07/22 22:36 Alkaline Phosphatase 53 U/L (34-104) 10/07/22 22:36 Total Protein 7.4 gm/dl (6.0-8.3) 10/07/22 22:36 Albumin 4.3 gm/dl (3.4-5.0) 10/07/22 22:36 Globulin 3.1 gm/dl (2.5-4.0) 10/07/22 22:36 Albumin/Globulin Ratio 1.4 (0.9-2) 10/07/22 22:36 SARS-CoV-2, RNA, NAAT Cancelled 10/08/22 00:41 Impressions Knee X-Ray 10/07/22 23:51 LEFT KNEE 2 VIEWS CLINICAL HISTORY: Postreduction examination. FINDINGS: AP and crosstable lateral views of the left knee are compared to study performed earlier the same day 10/07/2022. The skeletal structures are osteopenic. There has been successful reduction of the dislocated patella with spiritism of near-anatomic alignment. No fracture is clearly identified. Advanced degenerative change is seen at the patellofemoral articulation. Minimal narrowing is seen in the medial compartment. There are large marginal osteo phytes and patellar enthesophytes. Bony overgrowth is seen posteriorly along the distal femur and the tibial plateau. There is a joint effusion. Marked prepatellar soft tissue edema is observed. IMPRESSION: 1. There has been successful reduction of the dislocated patella with spiritism of near-anatomic alignment. 2. No fracture is clearly identified by x-ray. If there is clinical concern for occult fracture at the knee joint a CT scan should be obtained. 3. Joint effusion and marked prepatellar soft tissue swelling. Electronically signed by: Marlon Jain M.D. 10/08/2022 8:13 AM Ankle X-Ray 10/08/22 01:12 RIGHT ANKLE 2 VIEWS CLINICAL HISTORY: Splinting of right ankle. FINDINGS: AP and crosstable lateral views of the right ankle are compared to studies dated 10/07/2022. The examination is performed through a splint, obscuring fine bony detail. There is improved alignment of a comminuted spiral fracture of the distal fibular shaft. There are large displaced fragments. There is a vertically oriented fracture of the posterior malleolus, as well as a displaced avulsion fracture of the medial malleolus. The medial malleolar fracture is displaced by approximately 6 mm. Near-anatomic alignment has been restored at the ankle mortise. There is an associated joint effusion. Significant soft tissue swelling is seen around the ankle. Postsurgical change is partially visualized in the base of the first metatarsal. There is a plantar heel spur. IMPRESSION: Improved alignment of a trimalleolar fracture as compared to previous. Near anatomic alignment is restored at the ankle mortise. Electronically signed by: Marlon Jain M.D. 10/08/2022 8:09 AM (1) Ankle fracture, right Encounter type: initial encounter Fracture type: open
--- NOTE | 2022-10-08 10:37 | CT Scan Report ---
RIGHT ANKLE CT CT DOSE: 647.89 mGy.cm HISTORY: Right ankle pain with fracture TECHNIQUE: Multiaxial CT images of the right ankle were performed and reformatted in the sagittal and coronal plane without the use of contrast. A dose lowering technique was utilized adhering to the p rinciples of CASEY. COMPARISON: Right ankle 10/08/2022. FINDINGS: There is a splint overlying the right ankle. Redemonstration of the displaced trimalleolar right ankle fracture. This is similar to the prior radiograph. The medial and lateral malleoli fragme nts demonstrate up to 5 mm of lateral displacement. No dislocation. The distal fibular fracture is co mminuted. The posterior malleolus fracture demonstrates 2 mm of displacement. Subchondral cystic palomares ge at the subtalar joint. There are 2 screws within the proximal first metatarsal. Posterior and plan tar calcaneal spurs are noted. There is diffuse soft tissue swelling. Small amount of soft tissue gas at the anterior ankle joint. This raises the possibility of a previously open fracture. IMPRESSION: 1. Displaced trimalleolar right ankle fracture as described above. 2. No dislocation. 3. Small amount of soft tissue gas along the anterior ankle joint. This raises the possibility of a p revious open fracture. Clinical correlation recommended. ACT 112: Negative or not required by law. Electronically signed by: Teto Bridges M.D. 10/08/2022 10:34 AM
[2022-10-08] MEDS: ATENOLOL 50 MG TABLET PO SCH (10:38)
[2022-10-08] MEDS: ACETAMINOPHEN 1,000 MG/100 ML VIAL IV PRN ×2 (12:50→20:38)
--- NOTE | 2022-10-08 13:40 | Anesthesiology Consultation ---
Date of Service October 08, 2022 Assessment & Plan (1) Encounter for pre-operative examination: Chart Review Chart Review: Acceptable Risk for Surgery and Patient NOT seen in Pre Admission Testing Consults Requested none History Surgery Operation Date: 10/08/22 09:40 Proposed Procedures p Right Ankle Open Reduction Internal Fixation Versus - Jaime Jones DO s External Fixator - Jaime Jones DO Height/Weight Height: 5 ft 11 in Weight: 123.8 kg Allergies Allergy/AdvReac Type Severity Reaction Status Date / Time No Known Allergies Allergy Verified 10/07/22 22:54 Medications Home Medications Medication Instructions Recorded Confirmed Last Taken amlodipine 10 mg tablet 10 mg PO DAILY 10/18/20 10/07/22 10/07/22 atenolol 50 mg tablet 50 mg PO DAILY 10/18/20 10/07/22 10/07/22 lisinopril 40 mg tablet 40 mg PO DAILY 10/18/20 10/07/22 10/07/22 magnesium oxide 400 mg (241.3 mg 400 mg PO DAILY 10/18/20 10/07/22 10/07/22 magnesium) tablet dulaglutide 1.5 mg/0.5 mL 3 mg subcut WK 08/19/22 10/07/22 10/04/22 subcutaneous pen injector (Trulicity) trazodone 50 mg tablet 50 mg PO HS 08/19/22 10/07/22 10/06/22 venlafaxine 150 mg 150 mg PO DAILY 08/19/22 10/07/22 10/07/22 capsule,extended release 24 hr acetaminophen 500 mg tablet 1,000 mg PO DIRECTED PRN Pain 10/07/22 10/07/22 10/07/22 08:00 (Tylenol Extra Strength) diphenhydramine 25 1 tab PO HS PRN Sleep 10/07/22 10/07/22 Unknown mg-acetaminophen 500 mg tablet (Tylenol PM Extra Strength) multivitamin 1 tab PO DAILY 10/07/22 10/07/22 10/07/22 Active Medications Generic Name Dose Route Start Last Admin Trade Name Freq PRN Reason Stop Dose Admin Atenolol 50 mg 10/08/22 09:00 10/08/22 10:38 Atenolol 50 Mg Tablet PO 11/07/22 08:59 50 mg DAILY SAMANTHA Administration Acetaminophen 1,000 mg in 100 mls @ 400 mls/hr 10/08/22 04:54 10/08/22 13:35 Ofirmev IV 10/11/22 04:53 Infused Q8H PRN Infusion Pain Lactated Ringer's 1,000 mls @ 150 mls/hr 10/08/22 05:30 10/08/22 12:53 Lr IV 11/07/22 05:29 150 mls/hr .Q6H40M SAMANTHA Administration Insulin Aspart 0 units 10/08/22 07:30 10/08/22 13:12 Insulin Aspart Per Unit Charge SC 11/07/22 07:29 Not Given ACHS SAMANTHA Insulin Glargine 15 units 10/08/22 09:00 10/08/22 08:57 Lantus Per Unit Charge SQ 11/07/22 08:59 Not Given BID SAMANTHA Morphine Sulfate 2 mg 10/08/22 04:54 10/08/22 09:31 Morphine Sulfate 2 Mg/Ml Carp IV 10/22/22 04:53 2 mg Q4H PRN Administration Moderate Pain (Scale 5, 6, 7) Ondansetron HCl 4 mg 10/08/22 03:34 10/08/22 07:27 Ondansetron Inj 2 Mg/Ml 2 Ml Vial IV 11/07/22 03:33 4 mg Q4H PRN Administration Nausea Past Medical History Medical History Arthritis Past Family History Family History Aunt Cancer Brother Diabetes Mother Stroke Father Hypertension Heart disease Past Surgical History Surgical History H/O colonoscopy H/O tubal ligation History of bunionectomy Social History Smoking Status: Never smoker Hx Alcohol Use: Yes Alcohol type: hard liquor alcohol intake frequency: holidays/special occasions only Hx Substance Use: No Physical Exam Vital Signs Last Vital Signs Temp 97.7 F 10/08/22 06:50 Pulse 93 H 10/08/22 06:50 Resp 18 10/08/22 06:50 BP 127/75 10/08/22 06:50 Pulse Ox 94 10/08/22 10:19 O2 Del Method Nasal Cannula 10/08/22 10:19 O2 Flow Rate 2 10/08/22 10:19 Testing Laboratory Results 10/08/22 05:58 10/08/22 05:58 PT 11.5 Seconds (9.0-12.0) 10/08/22 05:58 INR 1.1 (0.9-1.1) 10/08/22 05:58 10/08/22 10/08/22 12:15 08:19 POC Glucose 130 H 127 H Electrocardiogram Date: 10/07/22 Findings: + NSR @ (tachycardic 103)
--- NOTE | 2022-10-08 14:50 | Electrocardiogram Report ---
Test Reason : Blood Pressure : / mmHG Vent. Rate : 103 BPM Atrial Rate : 103 BPM P-R Int : 186 ms QRS Dur : 084 ms QT Int : 352 ms P-R-T Axes : 073 006 062 degrees QTc Int : 461 ms Sinus tachycardia Otherwise normal ECG When compared with ECG of 17-OCT-2020 23:02, No significant change was found Confirmed by Cesar Hernandez ([id number]) on 10/08/2022 2:50:23 PM Referred By: REFERRED SELF Confirmed By:Cesar Hernandez
[2022-10-08] MEDS: VENLAFAXINE HCL XR 150 MG CAPXR PO SCH (18:03)
[2022-10-08] MEDS: amLODIPine BESYLATE 5 MG TAB PO SCH (18:03)
[2022-10-08] MEDS: lisinopril 40 MG TAB PO SCH (18:03)
[2022-10-08] MEDS ORDERED: traZODone HCL 50 MG TAB PO ONE (20:40)
[2022-10-08] MEDS: MoRPHine SULFATE 4 MG/ML 1 ML CARP\\VIAL IV PRN (21:50)
[2022-10-09] MEDS ORDERED: HYDROmorphone INJ 0.5 MG/0.5 ML SYR IV STA ×2 (00:03→02:29)
[2022-10-09] MEDS: LACTATED RINGER'S 1,000 ML IV SCH ×4 (02:55→20:21)
[2022-10-09] MEDS ORDERED: Nursing to Pharmacy Communication SCH (06:15)
--- NOTE | 2022-10-09 06:16 | Billing Data ---
Date of Service October 09, 2022 Coding Level of Care Code 51614 INT INP/OBS CARE
[2022-10-09] MEDS: INSULIN ASPART PER UNIT CHARGE SC SCH ×3 (07:15→19:58)
--- NOTE | 2022-10-09 07:16 | Hospitalist Progress Note ---
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 Soria outpatient Disposition: Admit to [facility] for orthopedic procedure Diet: N.p.o. for now, LR at 150 cc/h DVT prophylaxis: SCDs on left leg, hold pharmacologic DVT prophylaxis until after surgical procedure CODE STATUS: Full code Admission and Anticipated Discharge Date Admission Date: October 08, 2022 Supervising Physician Co-Signing Physician Notes I personally examined the patient and verified all padilla points of history and exam, discussed case, and agree with decision making with Dr Hurley tried to see twice - once on bedpan, later had been taken to OR. chart rev iewed, case d/w resident physician vitals, labs reviewed hypoxia - likely was not true. O2 was weaned DM - well controlled otherwise as above Subjective Patient is a 62-year-old female with past medical history of obesity, DCIS, hypertension, controlled DM 2, diabetic nephropathy admitted for right open ankle fracture and left patellar dislocation, both of which have been reduced. Patient is hemodynamically stable and neurovascularly intact. Patient will be admitted to the hospital with orthopedic surgical consultation. Pain well controlled this am. Awaiting surgery. Surgery cancelled 10/08/22, anticipate surgery 10/09/22. Pain had surgery today. Pain remains controlled post-op. Review of Systems Review of Systems: reviewed, see HPI Physical Exam Physical Exam: General: patient resting comfortably, NAD, non-toxic in appearance, AA&O x 4, answers questions appropriately and follows commands. Skin: warm, dry, intact, no rashes or lesions HEENT: NC/AT, anicteric sclera, conjunctiva without injection, external ear normal to inspection, nares patent, moist mucus membranes, dentition intact, neck supple, trachea midline, no thyromegaly, no JVD Heart: +S1/S2, regular, no m/r/g Lungs: equal air entry bilaterally, no rales/rhonchi/wheezes Abd: +BS, soft, NT/ND, no masses/organomegaly/ascites Ext: warm, no clubbing/cyanosis or edema. R lower extremity splinted. L patella remains reduced Neuro: nonfocal, patient AA&O x 4, speech intact, no facial droop, moving all extremities on command. Results & Data Results & Data Vital Signs (Past 12 Hours) Vital Signs Temp Pulse Resp BP Pulse Ox O2 Del Method 10/08/22 23:54 94 H 22 134/86 92 Room Air 10/08/22 21:08 36.8 C 96 H 18 126/74 91 Room Air Resident Activity Tracking Resident Involvement: Resident Care Provided Care Provided: Adult Hospital Medicine (1) Ankle fracture, right Encounter type: initial encounter Fracture type: open
[2022-10-09 07:55] LABS: BUN Creatinine Ratio 12.5 (10-20); Creatinine Clr Calc Pharmacy 76.6 ml/min; Est GFR (African American) 61.4 ml/min; Potassium 4.1 mmol/L (3.5-5.1)
[2022-10-09] MEDS: LANTUS PER UNIT CHARGE SQ SCH ×2 (08:17→20:21)
[2022-10-09] MEDS: MoRPHine SULFATE 4 MG/ML 1 ML CARP\\VIAL IV PRN (08:18)
[2022-10-09] MEDS: lisinopril 40 MG TAB PO SCH (08:20)
[2022-10-09] MEDS: VENLAFAXINE HCL XR 150 MG CAPXR PO SCH (08:20)
[2022-10-09] MEDS: amLODIPine BESYLATE 5 MG TAB PO SCH (08:20)
[2022-10-09] MEDS: ATENOLOL 50 MG TABLET PO SCH (08:21)
[2022-10-09] MEDS ORDERED: HYDROmorphone INJ 0.5 MG/0.5 ML SYR IV PRN (08:27)
[2022-10-09] MEDS: HYDROmorphone INJ 1 MG/ML SYRINGE IV PRN ×2 (10:38→14:25)
--- NOTE | 2022-10-09 15:18 | History & Physical Bridge Note ---
Date of Service October 09, 2022 History & Physical Bridge Note I have examined the patient, reviewed the History & Physical and in the interval since the performance of the History & Physical I have noted the following changes of clinical significance: no changes noted. Met with patient and had a discussion regarding risks/benefits of right ankle orif vs external fixation. After review, patient elected to proceed with surgery and written consent was obtained.
[2022-10-09] MEDS ORDERED: fentaNYL citrate PF 100 MCG/2 ML VIAL IV PRN (16:11)
[2022-10-09] MEDS ORDERED: PROMETHAZINE HCL 12.5 MG in SODIUM CHLORIDE 0.9% 50 ML IV PRN (16:11)
[2022-10-09] MEDS ORDERED: ONDANSETRON INJ 2 MG/ML 2 ML VIAL IV PRN ×2 (16:11→18:36)
[2022-10-09] MEDS ORDERED: FLUMAZENIL 0.1 MG/1 ML 10 ML VIAL IV PRN (16:11)
[2022-10-09] MEDS ORDERED: ePHEDrine sulfate 50 MG/ML AMP IV PRN (16:11)
[2022-10-09] MEDS ORDERED: NALOXONE HCL 0.4 MG/1 ML VIAL/CARP IV PRN ×2 (16:11→18:36)
[2022-10-09] MEDS ORDERED: ATROPINE SULFATE 0.1 MG/ML 10ML SYR IV PRN (16:11)
[2022-10-09] MEDS ORDERED: HYDROmorphone INJ 1 MG/ML SYRINGE IV PRN (16:11)
[2022-10-09] MEDS ORDERED: LABETALOL HCL IV 5 MG/ML 20ML IV PRN (16:11)
[2022-10-09] MEDS ORDERED: PROPOFOL IV EMULSION 10 MG/ML 20 ML VIAL IV ONE (16:17)
[2022-10-09] MEDS ORDERED: ONDANSETRON INJ 2 MG/ML 2 ML VIAL ONE (16:17)
[2022-10-09] MEDS ORDERED: MIDAZOLAM HCL 1 MG/ML 2ML VIAL ONE (16:17)
[2022-10-09] MEDS ORDERED: LIDOCAINE 2% 2 ML VIAL/AMP(20MG/ML) INFIL ONE (16:17)
[2022-10-09] MEDS ORDERED: DEXAMETHASONE SOD INJ 4 MG/ML VIAL ONE (16:17)
[2022-10-09] MEDS ORDERED: fentaNYL citrate PF 100 MCG/2 ML VIAL ONE (16:17)
[2022-10-09] MEDS ORDERED: BUPIVACAINE/EPINEPHRINE 0.5% MPF 1:200,000 30 ML VIAL ONE (16:27)
[2022-10-09] MEDS ORDERED: BUPIVACAINE 0.5 % 5 MG/1 ML MPF 30ML VIAL ONE (16:27)
[2022-10-09] MEDS ORDERED: ROPIVACAINE 0.5% 5 MG/ML 30 ML VIAL ONE (16:33)
[2022-10-09] MEDS ORDERED: PHENYLEPHRINE 100MCG/ML 5ML SYR ONE (17:06)
[2022-10-09] MEDS ORDERED: ceFAZolin 330 MG/ML 1 GM VIAL ONE (17:20)
[2022-10-09] MEDS ORDERED: ePHEDrine sulfate 50 MG/ML SYR ONE (17:43)
[2022-10-09] MEDS ORDERED: ceFAZolin 2000MG 2,000 MG/15 ML SYR IV ONE (17:46)
[2022-10-09] MEDS ORDERED: METOCLOPRAMIDE HCL INJ 5 MG/ML 2 ML VIAL IV PRN (18:36)
--- NOTE | 2022-10-09 18:40 | Post Operative Brief Note ---
Immediate Post Op Note v1 Date of Surgery October 09, 2022 Pre & Post Diagnosis Operation Date: 10/09/22 10:20 Pre-Op Diagnosis: Right Ankle Fracture Post-Op Diagnosis: Right Ankle Fracture I identified the patient and participated in the time-out.: Yes Procedure Operation Date: 10/09/22 10:20 Actual Procedures p Right Ankle Open Reduction Internal Fixation (Right) - Jaime Jones DO Surgeon Jaime Jones DO Fell Cutter none Estimated Blood Loss 5 Findings Consistent with Post-Op Diagnosis see dictation Complications none
[2022-10-09] MEDS: ONDANSETRON INJ 2 MG/ML 2 ML VIAL IV PRN (18:53)
--- NOTE | 2022-10-09 19:03 | Anesthesiology Progress Note ---
Date of Service October 09, 2022 Anesthesia Post Procedure Vital Signs Vital Signs: Temp Pulse Pulse Resp BP Pulse Ox O2 Del Method 10/09/22 18:55 95 H 16 133/69 97 Nasal Cannula 10/09/22 18:45 95 H 18 140/77 97 Room Air 10/09/22 18:37 36.3 C L 97 H 16 127/77 96 Oxymask 10/09/22 15:17 37.6 C H 94 H 18 149/84 H 92 Nasal Cannula 10/09/22 07:22 36.8 C 103 H 16 170/70 H 95 Room Air 10/08/22 23:54 94 H 22 134/86 92 Room Air 10/08/22 21:08 36.8 C 96 H 18 126/74 91 Room Air O2 Flow Rate 10/09/22 18:55 3 10/09/22 18:45 10/09/22 18:37 6 10/09/22 15:17 2 10/09/22 07:22 10/08/22 23:54 10/08/22 21:08 Pain Intensity Right Ankle: Pain Intensity: 8 Transfer of Care Handoff Completed per policy Notes Mental Status: alert / awake / arousable Patient Amnestic to Procedure: Yes Nausea / Vomiting: adequately controlled Pain: adequately controlled Airway Patency, RR, SpO2: stable & adequate BP & HR: stable & adequate Hydration State: stable & adequate Anesthetic Complications: no major complications apparent
--- NOTE | 2022-10-09 19:21 | Billing Data ---
Date of Service October 09, 2022 Coding Level of Care Code 18611 SUB INP/OBS CARE
[2022-10-09] MEDS: SODIUM CHLORIDE 0.9% 1000ML 1,000 ML IV SCH (20:12)
[2022-10-09] MEDS: SENNA 8.6 MG TAB PO SCH (20:13)
[2022-10-09] MEDS: DOCUSATE SODIUM 100 MG CAP PO SCH (20:13)
--- NOTE | 2022-10-09 23:16 | Fluoroscopy Report ---
INTRAOPERATIVE RADIOGRAPHS CLINICAL HISTORY: Open reduction and internal fixation of the right ankle. Fluoro time: 32 seconds Ka,r: 0.846 mGy FINDINGS: 5 spot fluoroscopic views of the right ankle are correlated with radiographs dated 3. There has been ultrasound plate fixation of a distal fibular fracture with catholic of near-andressa tomic alignment. Numerous cortical lag screw transfix the plate. 2 cortical lag screws transfix a fra cture of the medial malleolus. A small plate is seen on lateral cortex of the distal tibia. The ortho pedic hardware appears intact. Near-anatomic alignment is preserved at the ankle mortise. Postoperati ve changes partially visualized in the base of the first tarsal. Soft tissue swelling is noted around the ankle. A surgical drain is suggested posteriorly. IMPRESSION: Intraoperative images from open reduction and internal fixation of the right ankle as abo ve. Electronically signed by: Marlon Jain M.D. 10/09/2022 11:14 PM
[2022-10-10] MEDS: INSULIN ASPART PER UNIT CHARGE SC SCH ×5 (00:06→21:51)
[2022-10-10] MEDS: ceFAZolin 2000MG 2,000 MG/15 ML SYR IV SCH ×2 (00:09→08:08)
[2022-10-10] MEDS: LACTATED RINGER'S 1,000 ML IV SCH (00:20)
[2022-10-10] MEDS: SODIUM CHLORIDE 0.9% 1000ML 1,000 ML IV SCH (05:50)
--- NOTE | 2022-10-10 07:33 | Hospitalist Progress Note ---
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 Soria outpatient Disposition: Admit to [facility] for orthopedic procedure Diet: N.p.o. for now, LR at 150 cc/h DVT prophylaxis: SCDs on left leg, hold pharmacologic DVT prophylaxis until after surgical procedure CODE STATUS: Full code Admission and Anticipated Discharge Date Admission Date: October 08, 2022 Supervising Physician Co-Signing Physician Notes I personally examined the patient and verified all padilla points of history and exam, discussed case, and agree with decision making with Dr Hurley feeling ok waiting on PT. no new complaints pain better controlled vitals, labs reviewed nad heent nc at mmm breathing unlabored no accessory muscles good effor tskin no rashes pallor or icterus L ankle wrapped hypoxia - likely was not true. O2 was weaned - incentive spirometry DM - well controlled possible CKD3 - creatinine basically at baseline otherwise as above Subjective Patient is a 62-year-old female with past medical history of obesity, DCIS, hypertension, controlled DM 2, diabetic nephropathy admitted for right open ankle fracture and left patellar dislocation, both of which have been reduced. Patient is hemodynamically stable and neurovascularly intact. Pain well controlled this am. Surgery was yesterday 10/10/22. Review of Systems Review of Systems: reviewed, see HPI Physical Exam Physical Exam: General: patient resting comfortably, NAD, non-toxic in appearance, AA&O x 4, answers questions appropriately and follows commands. Skin: warm, dry, intact, no rashes or lesions HEENT: NC/AT, anicteric sclera, conjunctiva without injection, external ear normal to inspection, nares patent, moist mucus membranes, dentition intact, neck supple, trachea midline, no thyromegaly, no JVD Heart: +S1/S2, regular, no m/r/g Lungs: equal air entry bilaterally, no rales/rhonchi/wheezes Abd: +BS, soft, NT/ND, no masses/organomegaly/ascites Ext: warm, no clubbing/cyanosis or edema. R lower extremity splinted. L patella remains reduced Neuro: nonfocal, patient AA&O x 4, speech intact, no facial droop, moving all extremities on command. Results & Data Results & Data Vital Signs (Past 12 Hours) Vital Signs Temp Pulse Resp BP Pulse Ox O2 Del Method O2 Flow Rate 10/10/22 07:12 36.9 C 99 H 16 159/78 H 93 Nasal Cannula 2 10/10/22 03:00 36.8 C 99 H 16 124/73 94 Nasal Cannula 2 10/09/22 22:45 36.6 C 94 H 16 124/76 95 Nasal Cannula 2 10/09/22 22:00 Nasal Cannula 2 10/09/22 21:45 36.6 C 94 H 16 122/76 95 Nasal Cannula 2 10/09/22 20:45 36.6 C 96 H 16 133/77 95 Nasal Cannula 2 10/09/22 20:15 36.8 C 96 H 16 129/76 95 Nasal Cannula 2 10/09/22 19:45 36.9 C 94 H 16 129/73 93 Nasal Cannula 2 Resident Activity Tracking Resident Involvement: Resident Care Provided Care Provided: Adult Hospital Medicine (1) Ankle fracture, right Encounter type: initial encounter Fracture type: open
[2022-10-10 07:38] LABS: Basophils # (auto) 0.06 K/uL (0-0.2); Basophils % (auto) 0.5 %; Eosinophils # (auto) 0.12 K/uL (0-0.50); Eosinophils % (auto) 1.1 %; Hematocrit (blood only) 28.5 % (37.0-47.0); Hemoglobin 9.7 g/dl (12.0-16.0); Immature Granulocytes # (auto) 0.05 K/uL (0.01-0.20); Immature Granulocytes % (auto) 0.4 %; Lymphocytes # (auto) 1.14 K/uL (1.2-3.4); Lymphocytes % (auto) 10.1 %; Mean Corpuscular Hemoglobin 30.5 pg (25.0-34.0); Mean Corpuscular Volume 89.6 fL (80.0-100.0); Mean Platelet Volume 10.7 fL (9.4-12.4); Monocytes # (auto) 0.81 K/uL (0.11-0.59); Monocytes % (auto) 7.2 %; Neutrophils # (auto) 9.13 K/uL (1.40-6.50); Neutrophils % (auto) 80.7 %; Platelet Count 169 K/uL (130-400); RDW Coefficient of Variation 13.3 % (11.5-14.5); RDW Standard Deviation 44.2 fL (36.4-46.3); Red Blood Count 3.18 M/uL (4.20-5.40); White Blood Count 11.31 K/ul (4.8-10.8)
[2022-10-10 07:51] LABS: Albumin Globulin Ratio 1.4 (0.9-2); Albumin Level 3.4 gm/dl (3.4-5.0); BUN Creatinine Ratio 12.9 (10-20); Bilirubin,Total 0.8 mg/dl (0.2-1.0); Calcium 8.6 mg/dl (8.6-10.3); Est GFR (African American) 58.9 ml/min; Est GFR (Non-African American) 50.8 ml/min; Globulin 2.4 gm/dl (2.5-4.0); Magnesium 1.5 mg/dl (1.7-2.4); Phosphorus 3.8 mg/dl (2.5-4.9); Total Protein 5.8 gm/dl (6.0-8.3)
[2022-10-10] MEDS: amLODIPine BESYLATE 5 MG TAB PO SCH (08:01)
[2022-10-10] MEDS: lisinopril 40 MG TAB PO SCH (08:01)
[2022-10-10] MEDS: DOCUSATE SODIUM 100 MG CAP PO SCH ×2 (08:02→20:22)
[2022-10-10] MEDS: ATENOLOL 50 MG TABLET PO SCH (08:02)
[2022-10-10] MEDS: ASPIRIN 81 MG ECTAB PO SCH (08:02)
[2022-10-10] MEDS: VENLAFAXINE HCL XR 150 MG CAPXR PO SCH (08:02)
[2022-10-10] MEDS: MULTIVITAMIN TAB PO SCH (08:03)
[2022-10-10] MEDS: LANTUS PER UNIT CHARGE SQ SCH ×2 (09:03→21:51)
[2022-10-10] MEDS: HYDROmorphone INJ 1 MG/ML SYRINGE IV PRN ×2 (12:29→16:31)
--- NOTE | 2022-10-10 19:58 | Billing Data ---
Date of Service October 10, 2022 Coding Level of Care Code 67087 SUB INP/OBS CARE
[2022-10-10] MEDS: SENNA 8.6 MG TAB PO SCH (20:22)
[2022-10-11 06:16] LABS: Basophils # (auto) 0.06 K/uL (0-0.2); Basophils % (auto) 0.6 %; Eosinophils % (auto) 1.9 %; Hematocrit (blood only) 28.6 % (37.0-47.0); Hemoglobin 9.6 g/dl (12.0-16.0); Immature Granulocytes # (auto) 0.03 K/uL (0.01-0.20); Immature Granulocytes % (auto) 0.3 %; Lymphocytes # (auto) 1.21 K/uL (1.2-3.4); Lymphocytes % (auto) 11.5 %; Mean Corpuscular Hemoglobin 30.5 pg (25.0-34.0); Mean Corpuscular Hgb Conc 33.6 g/dL (32.0-36.0); Mean Corpuscular Volume 90.8 fL (80.0-100.0); Mean Platelet Volume 10.6 fL (9.4-12.4); Monocytes # (auto) 0.81 K/uL (0.11-0.59); Monocytes % (auto) 7.7 %; Neutrophils # (auto) 8.24 K/uL (1.40-6.50); Platelet Count 178 K/uL (130-400); RDW Coefficient of Variation 13.2 % (11.5-14.5); RDW Standard Deviation 43.8 fL (36.4-46.3); Red Blood Count 3.15 M/uL (4.20-5.40); White Blood Count 10.55 K/ul (4.8-10.8)
[2022-10-11 06:21] LABS: Albumin Globulin Ratio 1.3 (0.9-2); Albumin Level 3.5 gm/dl (3.4-5.0); BUN Creatinine Ratio 14.7 (10-20); Bilirubin,Total 0.9 mg/dl (0.2-1.0); Calcium 9.2 mg/dl (8.6-10.3); Creatinine Clr Calc Pharmacy 84.1 ml/min; Est GFR (African American) 68.8 ml/min; Est GFR (Non-African American) 59.3 ml/min; Globulin 2.6 gm/dl (2.5-4.0); Magnesium 1.7 mg/dl (1.7-2.4); Phosphorus 3.4 mg/dl (2.5-4.9); Potassium 3.8 mmol/L (3.5-5.1); Total Protein 6.1 gm/dl (6.0-8.3)
--- NOTE | 2022-10-11 06:48 | Hospitalist Progress Note ---
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 they will follow outpatient in 1o days - PT/OT: Nonweightbearing right lower extremity. Weightbearing as tolerated left leg with knee immobilizer on. - PT/OT recommended Rehab after discharge - Case management on case, waiting for insurance approval for rehab [facility] Acute blood loss anemia -Hb 9.6. 11.1 on admission. -asymptomatic. #L-patellar dislocation s/p reduction in ED #T2DM ISS while inpatient Last A1c 6.1 #Diabetic nephropathy at baseline #HTN Norvasc 10 mg q Daily Atenolol 50 mg q daily Lisinopril 40 mg q daily Will continue to monitor B/P #DCIS w/breast comedonecrosis New diagnosis, stable follow-up Dr. Sroia [facility]: SCDs on left leg, aspirin 81mgs daily CODE STATUS: Full code Admission and Anticipated Discharge Date Admission Date: October 08, 2022 Supervising Physician Co-Signing Physician Notes Resident Physician Supervision Note: I independently interviewed and examined the patient and verified the padilla history and physical, reviewed labs and image studies and agree with resident findings and care plan. Subjective Patient is 62 y/o female with PMH of obesity, DCIS, hypertension, controlled DM2, diabetic nephropathy admitted for right open ankle fracture s/p post op day 2 (surgery was 10/09) and left patellar dislocation (reduced at ED). PAtient us hemodynamically stable. Today pain is being controlled am, 3/10 on pain scale. Review of Systems Review of Systems: All systems reviewed & are unremarkable except as noted in Subjective reviewed, see HPI Physical Exam Physical Exam: Left knee: Knee immobilizer in place. No calf tenderness. Minimal tenderness to left knee. Right ankle: Splint and dressing is clean, dry, intact. No calf tenderness. Toes are mobile. Distally neurovascular status and sensation is grossly intact. Cardiovascular: Regular rate and rhythm, no gallops, no murmur Respiration: clear to auscultation lungs bilaterally without wheezing rhonchi or rales Constitutional: WD/WN, vitals as above Results & Data Results & Data Vital Signs (Past 12 Hours) Vital Signs Temp Pulse Resp BP Pulse Ox O2 Del Method O2 Flow Rate 10/10/22 20:25 Nasal Cannula 2 10/10/22 20:24 36.9 C 93 H 18 146/75 H 94 Nasal Cannula 2 Resident Activity Tracking Resident Involvement: Resident Care Provided Care Provided: Adult Hospital Medicine (1) Ankle fracture, right Encounter type: initial encounter Fracture type: open
--- NOTE | 2022-10-11 08:35 | Orthopedic Progress Note ---
Date of Service October 11, 2022 Assessment & Plan (1) Ankle fracture, right: Plan: Postop day #2 ORIF right bimalleolar fracture, hospital day #3 left knee patellar dislocation -Pain management as written -DVT prophylaxis SCDs, aspirin 81 mg -PT/OT: Nonweightbearing right lower extremity. Weightbearing as tolerated left leg with knee immobilizer on. -AM labs:Hemoglobin stable at 9.6, 11.1 on admission. Acute blood loss anemia secondary surgical loss versus dilutional. -Discharge planning: Patient will require inpatient rehab. Referrals placed. Orthopedics will sign off at this time. Please call with any questions. Patient can call [phone] for an appointment with Dr. Jones 10 to 14 days postoperatively. (2) Dislocation of patella, left, closed: Admission and Anticipated Discharge Date Admission Date: October 08, 2022 Subjective Patient is postop day 2 right ankle. She is resting in bed comfortably. Her pain is well controlled. She has minimal pain to right ankle. Left knee also with minimal pain. No other complaints. Denies chest pain, shortness of breath, nausea/vomiting/diarrhea, headaches or dizziness. Review of Systems Review of Systems: All systems reviewed & are unremarkable except as noted in Subjective Physical Exam Physical Exam: Left knee: Knee immobilizer in place. No calf tenderness. Minimal tenderness to left knee. Right ankle: Splint and dressing is clean, dry, intact. No calf tenderness. Toes are mobile. Distally neurovascular status and sensation is grossly intact. Constitutional: WD/WN, vitals as above Results & Data Vital Signs (Past 12 Hours) Vital Signs Temp Pulse Resp BP Pulse Ox O2 Del Method 10/11/22 07:02 37.1 C 93 H 18 153/79 H 93 Room Air (1) Ankle fracture, right Encounter type: initial encounter Fracture type: open
[2022-10-11] MEDS: ASPIRIN 81 MG ECTAB PO SCH (09:03)
[2022-10-11] MEDS: amLODIPine BESYLATE 5 MG TAB PO SCH (09:03)
[2022-10-11] MEDS: ATENOLOL 50 MG TABLET PO SCH (09:03)
[2022-10-11] MEDS: DOCUSATE SODIUM 100 MG CAP PO SCH ×2 (09:03→21:09)
[2022-10-11] MEDS: lisinopril 40 MG TAB PO SCH (09:04)
[2022-10-11] MEDS: MULTIVITAMIN TAB PO SCH (09:04)
[2022-10-11] MEDS: VENLAFAXINE HCL XR 150 MG CAPXR PO SCH (09:04)
[2022-10-11] MEDS: INSULIN ASPART PER UNIT CHARGE SC SCH ×4 (09:04→21:10)
[2022-10-11] MEDS: LANTUS PER UNIT CHARGE SQ SCH ×2 (09:04→21:11)
[2022-10-11] MEDS ORDERED: HYDROmorphone INJ 1 MG/ML SYRINGE IV PRN (20:03)
[2022-10-11] MEDS: SENNA 8.6 MG TAB PO SCH (21:09)
[2022-10-11] MEDS ORDERED: HYDROmorphone INJ 0.5 MG/0.5 ML SYR IV PRN (21:14)
[2022-10-12 06:04] LABS: Basophils # (auto) 0.06 K/uL (0-0.2); Basophils % (auto) 0.6 %; Eosinophils % (auto) 3.1 %; Hematocrit (blood only) 28.3 % (37.0-47.0); Hemoglobin 9.7 g/dl (12.0-16.0); Immature Granulocytes # (auto) 0.03 K/uL (0.01-0.20); Immature Granulocytes % (auto) 0.3 %; Lymphocytes # (auto) 1.36 K/uL (1.2-3.4); Lymphocytes % (auto) 13.9 %; Mean Corpuscular Hemoglobin 31.1 pg (25.0-34.0); Mean Corpuscular Hgb Conc 34.3 g/dL (32.0-36.0); Mean Corpuscular Volume 90.7 fL (80.0-100.0); Mean Platelet Volume 10.4 fL (9.4-12.4); Monocytes # (auto) 0.85 K/uL (0.11-0.59); Monocytes % (auto) 8.7 %; Neutrophils # (auto) 7.18 K/uL (1.40-6.50); Neutrophils % (auto) 73.4 %; Platelet Count 199 K/uL (130-400); RDW Coefficient of Variation 13.3 % (11.5-14.5); Red Blood Count 3.12 M/uL (4.20-5.40); White Blood Count 9.78 K/ul (4.8-10.8)
[2022-10-12 06:20] LABS: Albumin Globulin Ratio 1.3 (0.9-2); Albumin Level 3.5 gm/dl (3.4-5.0); BUN Creatinine Ratio 17.3 (10-20); Bilirubin,Total 0.9 mg/dl (0.2-1.0); Calcium 9.4 mg/dl (8.6-10.3); Creatinine Clr Calc Pharmacy 87.6 ml/min; Est GFR (African American) 72.2 ml/min; Est GFR (Non-African American) 62.3 ml/min; Globulin 2.8 gm/dl (2.5-4.0); Magnesium 1.6 mg/dl (1.7-2.4); Phosphorus 4.3 mg/dl (2.5-4.9); Potassium 3.9 mmol/L (3.5-5.1); Total Protein 6.3 gm/dl (6.0-8.3)
--- NOTE | 2022-10-12 06:32 | Hospitalist Progress Note ---
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 Weight bearing as tolerated left leg with knee immobilizer on. - PT/OT recommended Rehab after discharge - Case management on case, waiting for insurance approval for rehab [facility] #Acute blood loss anemia -stable at 9.7. #L-knee dislocation s/p reduction in ED #T2DM ISS while inpatient Last A1c 6.1 #Diabetic nephropathy at baseline #HTN Norvasc 10 mg q Daily Atenolol 50 mg q daily Lisinopril 40 mg q daily Will continue to monitor B/P #DCIS w/breast comedonecrosis New diagnosis, stable follow-up Dr. Soria outpatient Disposition: MedSurg Diet: Carb consistent DVT prophylaxis: aspirin 81mgs CODE STATUS: Full code Admission and Anticipated Discharge Date Admission Date: October 08, 2022 Supervising Physician Co-Signing Physician Notes Resident Physician Supervision Note: I independently interviewed and examined the patient and verified the padilla history and physical, reviewed labs and image studies and agree with resident findings and care plan. Subjective Patient is 62 y/o female with PMH of obesity, DCIS, hypertension, controlled DM2, diabetic nephropathy admitted for right open ankle fracture s/p post op day 2 (surgery was 10/09) and left patellar dislocation (reduced at ED). Patient is hemodynamically stable. Today pain is being controlled am, 4/10 on pain scale. Review of Systems Review of Systems: All systems reviewed & are unremarkable except as noted in Subjective Physical Exam Physical Exam: Left knee: Knee immobilizer in place. No calf tenderness. Minimal tenderness to left knee. Right ankle: Splint and dressing is clean, dry, intact. No calf tenderness. Toes are mobile. Distally neurovascular status and sensation is grossly intact. Cardiovascular: Regular rate and rhythm, no gallops, no murmur Respiration: clear to auscultation lungs bilaterally without wheezing rhonchi or rales Constitutional: WD/WN, vitals as above Results & Data Results & Data Vital Signs (Past 12 Hours) Vital Signs Temp Pulse Resp BP Pulse Ox O2 Del Method O2 Flow Rate 10/12/22 00:08 18 96 Nasal Cannula 2 10/11/22 19:50 Room Air 10/11/22 21:08 90 16 94 Room Air 10/11/22 20:54 36.8 C 90 18 124/71 91 Room Air Resident Activity Tracking Resident Involvement: Resident Care Provided Care Provided: Adult Hospital Medicine (1) Ankle fracture, right Encounter type: initial encounter Fracture type: open
[2022-10-12] MEDS: lisinopril 40 MG TAB PO SCH (09:17)
[2022-10-12] MEDS: amLODIPine BESYLATE 5 MG TAB PO SCH (09:18)
[2022-10-12] MEDS: DOCUSATE SODIUM 100 MG CAP PO SCH ×2 (09:18→20:56)
[2022-10-12] MEDS: ATENOLOL 50 MG TABLET PO SCH (09:18)
[2022-10-12] MEDS: MULTIVITAMIN TAB PO SCH (09:18)
[2022-10-12] MEDS: ASPIRIN 81 MG ECTAB PO SCH (09:18)
[2022-10-12] MEDS: VENLAFAXINE HCL XR 150 MG CAPXR PO SCH (09:18)
[2022-10-12] MEDS: LANTUS PER UNIT CHARGE SQ SCH ×2 (09:24→20:53)
[2022-10-12] MEDS: INSULIN ASPART PER UNIT CHARGE SC SCH ×4 (09:24→20:53)
[2022-10-12] MEDS: MAGNESIUM HYDROXIDE SUSP 30 ML UDC PO PRN (09:25)
--- NOTE | 2022-10-12 13:21 | Operative Report ---
Post Operative Report Pre & Post Diagnosis Operation Date: 10/09/22 10:20 Pre-Op Diagnosis: Right Ankle Fracture Post-Op Diagnosis: Right Ankle Fracture I identified the patient and participated in the time-out.: Yes Procedure Operation Date: 10/09/22 10:20 Actual Procedures p Right Bimalleolar Ankle Open Reduction Internal Fixation with Syndesmotic Repair (Right) - Jaime Jones DO Surgeon Jaime Jones DO Student Teaching Coordinator none Estimated Blood Loss 5 Findings Consistent with Post-Op Diagnosis see dictation Specimens none Complications none Indications 62-year-old female who presented after twisting her right ankle. In emergency department she was noted to have a fracture dislocation. He successfully underwent closed reduction and was placed in a splint. CT scan was obtained which demonstrated trimalleolar ankle fracture. Posterior malleolus segment was noted to be very small in size. Results associated with the symptomatic findings. I met with patient preoperatively and had a lengthy discussion with her regarding risk and benefits of right ankle open reduction internal fixation with syndesmotic repair. After reviewing she elected proceed with surgical intervention and written consent was obtained. Description of Procedure Implants: Synthes 2.7 mm / 3.5 mm locking fibular plate nine-hole, five 2.7 mm distal locking screws, one 3.5 mm cortical screw, three 3.5 mm cortical locking screws, two 4.0 mm partially-threaded cannulated screws, Arthrex tight rope Procedure. Patient was appropriately identified and the right lower extremity was marked in the preoperative holding area. She is then taken back to the operative suite where she received a general anesthesia as well as antibiotics per protocol. A nonsterile right thigh tourniquet was then placed. Bone foam was then placed under the right lower extremity. Patient was then prepped and draped in standard orthopedic fashion timeout was then performed. Esmarch was used to exsanguinate the right lower extremity and the tourniquet was then inflated to 250 mmHg. Attention was first turned to the distal fibula. Incision was made overlying the distal fibula. Metzenbaum scissors were used to dissect through the subcutaneous tissue down to the lateral aspect of the fibula. Patient was noted to have a comminuted fracture extending at and above the level of the syndesmosis. Using a lobster-claw tenaculum the fracture was reduced to a anatomic position. A 9 hole distal fibular locking plate was then selected and provisionally pinned in position. This was noted to Aaron the fracture site. A nonlocking cortical screw was then placed in the shaft to compress the plate to the bone. 5 distal locking screws were then placed in the distal aspect of the plate. Tenaculum was then removed. 3 additional cortical locking screws were then placed fibular shaft. This provided excellent reduction. Reduction in position was assessed under fluoroscopy. Attention was then turned to the medial malleolus. An incision overlying medial malleolus was then made with a scalpel. A dental pick was then used to reduce the medial malleolus fracture. 2 guidewires were then placed from the medial malleolus segment extending into the distal tibia. Position was confirmed on AP and lateral radiographs. 2 partially-threaded 4.0 millimeter screws were then inserted overlying the cannulated guidewires. This provided excellent reduction and compression of the fracture site. Guidewires were then removed. Attention was then turned to syndesmotic tight rope placement. There is noted to be some widening of the syndesmosis. Arthrex tight rope was then placed through the plate and then compressed down to bone. This provided excellent reduction. Final radiographs were obtained demonstrating good reduction of the fractures and the syndesmosis and near anatomic position. Tourniquet was then deflated. Wounds were then copiously irrigated using normal saline solution. There was a small skin tear approximately 5 mm in size on the anterior aspect of the ankle. Wounds were then closed using 2-0 Vicryl for deep closure followed by fran for skin closure. Sterile dressings of Xeroform 4 x 4 gauze ABD and web roll were then applied. Patient was then placed in a well-padded thumb splint. She tolerated the procedure well and was taken to recovery room in hemodynamically stable condition. I attest to the content of the Intraoperative Record and any orders documented therein. Any exceptions are noted below.
[2022-10-12] MEDS: oxyCODONE/ACETAMINOPHEN 5mg/325mg TAB PO PRN ×2 (13:35→20:56)
[2022-10-12] MEDS: SENNA 8.6 MG TAB PO SCH (20:56)
[2022-10-13 07:30] LABS: Basophils # (auto) 0.09 K/uL (0-0.2); Basophils % (auto) 0.7 %; Eosinophils # (auto) 0.26 K/uL (0-0.50); Eosinophils % (auto) 2.1 %; Hematocrit (blood only) 29.9 % (37.0-47.0); Hemoglobin 9.9 g/dl (12.0-16.0); Immature Granulocytes # (auto) 0.07 K/uL (0.01-0.20); Immature Granulocytes % (auto) 0.6 %; Lymphocytes # (auto) 1.24 K/uL (1.2-3.4); Lymphocytes % (auto) 9.8 %; Mean Corpuscular Hemoglobin 30.2 pg (25.0-34.0); Mean Corpuscular Hgb Conc 33.1 g/dL (32.0-36.0); Mean Corpuscular Volume 91.2 fL (80.0-100.0); Mean Platelet Volume 10.4 fL (9.4-12.4); Monocytes # (auto) 0.92 K/uL (0.11-0.59); Monocytes % (auto) 7.3 %; Neutrophils # (auto) 10.07 K/uL (1.40-6.50); Neutrophils % (auto) 79.5 %; Platelet Count 240 K/uL (130-400); RDW Coefficient of Variation 13.3 % (11.5-14.5); RDW Standard Deviation 44.3 fL (36.4-46.3); Red Blood Count 3.28 M/uL (4.20-5.40); White Blood Count 12.65 K/ul (4.8-10.8)
--- NOTE | 2022-10-13 07:35 | Hospitalist Progress Note ---
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 Weight bearing as tolerated left leg with knee immobilizer on. - PT/OT recommended Rehab after discharge - Case management on case, waiting for insurance approval for rehab [facility] #Acute blood loss anemia -stable at 9.9 #Constipation - Bowel regimen with Miralax started 10/13 #L-knee dislocation s/p reduction in ED #T2DM ISS while inpatient Last A1c 6.1 #Diabetic nephropathy at baseline #HTN Norvasc 10 mg q Daily Atenolol 50 mg q daily Lisinopril 40 mg q daily Will continue to monitor B/P #DCIS w/breast comedonecrosis New diagnosis, stable follow-up Dr. Soria outpatient Disposition: MedSurg Diet: Carb consistent DVT prophylaxis: aspirin 81mgs CODE STATUS: Full code Admission and Anticipated Discharge Date Admission Date: October 08, 2022 Supervising Physician Co-Signing Physician Notes Resident Physician Supervision Note: I independently interviewed and examined the patient and verified the padilla history and physical, reviewed labs and image studies and agree with resident findings and care plan. Subjective Patient is 62 y/o female with PMH of obesity, DCIS, hypertension, controlled DM2, diabetic nephropathy admitted for right open ankle fracture s/p post op day 2 (surgery was 10/09) and left patellar dislocation (reduced at ED). Patient is hemodynamically stable. Today pain is being controlled am, 4/10 on pain scale. 10/14: Patient evaluated at bedside, notes that her pain is well-controlled, rates it as a 3/10. Patient has taken Percocet 1 tab on 2 occasions in the past 24 hours. Of note, patient states that she has not had a bowel movement since last Thursday and is feeling gassy. Continues to work with PT/OT on mobility exercises, has not been able to get out of bed since surgery. Patient also states that she has met with someone from [facility] about rehab placement following discharge. Review of Systems Review of Systems: All systems reviewed & are unremarkable except as noted in HPI & below Physical Exam Constitutional: WD/WN, vitals as above Respiratory: normal respiratory effort, lungs clear to auscultation Cardiovascular: RRR, no murmur, no edema Gastrointestinal (Abdomen): normal bowel sounds, soft, nontender, no hepatosplenomegaly Musculoskeletal: Lower extremities neurovascularly intact, toes mobile Results & Data Results & Data Vital Signs (Past 12 Hours) Vital Signs Temp Pulse Resp BP Pulse Ox O2 Del Method 10/12/22 20:55 Room Air 10/12/22 20:35 37.2 C 88 18 149/81 H 92 Room Air Resident Activity Tracking Resident Involvement: Resident Care Provided Care Provided: Adult Hospital Medicine (1) Ankle fracture, right Encounter type: initial encounter Fracture type: open
[2022-10-13 07:49] LABS: Albumin Globulin Ratio 1.3 (0.9-2); Albumin Level 3.5 gm/dl (3.4-5.0); BUN Creatinine Ratio 18.4 (10-20); Creatinine Clr Calc Pharmacy 83.3 ml/min; Est GFR (African American) 67.9 ml/min; Est GFR (Non-African American) 58.6 ml/min; Globulin 2.8 gm/dl (2.5-4.0); Magnesium 1.8 mg/dl (1.7-2.4); Phosphorus 3.8 mg/dl (2.5-4.9); Total Protein 6.3 gm/dl (6.0-8.3)
[2022-10-13] MEDS: lisinopril 40 MG TAB PO SCH (07:58)
[2022-10-13] MEDS: MULTIVITAMIN TAB PO SCH (07:58)
[2022-10-13] MEDS: VENLAFAXINE HCL XR 150 MG CAPXR PO SCH (07:58)
[2022-10-13] MEDS: DOCUSATE SODIUM 100 MG CAP PO SCH ×2 (07:59→20:10)
[2022-10-13] MEDS: amLODIPine BESYLATE 5 MG TAB PO SCH (07:59)
[2022-10-13] MEDS: ATENOLOL 50 MG TABLET PO SCH (07:59)
[2022-10-13] MEDS: ASPIRIN 81 MG ECTAB PO SCH (07:59)
[2022-10-13] MEDS: INSULIN ASPART PER UNIT CHARGE SC SCH ×4 (08:50→21:45)
[2022-10-13] MEDS: LANTUS PER UNIT CHARGE SQ SCH ×2 (08:50→21:45)
[2022-10-13] MEDS: POLYETHYLENE (MIRALAX) 17 GM PACK PO SCH ×4 (12:24→22:25)
[2022-10-13] MEDS: oxyCODONE/ACETAMINOPHEN 5mg/325mg TAB PO PRN (16:17)
[2022-10-13] MEDS: SENNA 8.6 MG TAB PO SCH (20:10)
[2022-10-14] MEDS: POLYETHYLENE (MIRALAX) 17 GM PACK PO SCH ×6 (03:10→22:16)
--- NOTE | 2022-10-14 06:40 | Hospitalist Progress Note ---
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 Weight bearing as tolerated left leg with knee immobilizer on. - Case management on case, pt does not meet [facility] criteria, waiting to hear from [facility] about bed availability. #Acute blood loss anemia -stable at 10.6 #Constipation - Bowel regimen with Miralax, Magnesium Hydroxide, Bisacodyl #Urinary retension - Needing straight cath. Likely from constipation - continue aggressive bowel regimen #Generalized anxiety ds - On venlafaxin. Trazodone held on admission - will resume - Consult [facility] liason for support. Having worse symptoms in last 2 days. #L-knee dislocation s/p reduction in ED #T2DM ISS while inpatient Last A1c 6.1 #Diabetic nephropathy at baseline #HTN Norvasc 10 mg q Daily Atenolol 50 mg q daily Lisinopril 40 mg q daily Will continue to monitor B/P #DCIS w/breast comedonecrosis New diagnosis, stable follow-up Dr. Soria outpatient Disposition: MedSurg Diet: Carb consistent DVT prophylaxis: aspirin 81mgs daily CODE STATUS: Full code Admission and Anticipated Discharge Date Admission Date: October 08, 2022 Supervising Physician Co-Signing Physician Notes Resident Physician Supervision Note: I independently interviewed and examined the patient and verified the padilla history and physical, reviewed labs and image studies and agree with resident findings and care plan. Subjective Patient is 62 y/o female with PMH of obesity, DCIS, hypertension, controlled DM2, diabetic nephropathy admitted for right open ankle fracture s/p surgery (10/09) and left patellar dislocation (reduced at ED). 10/14: Patient evaluated at bedside, found sitting in chair beside bed in no apparent distress. Patient notes that today was the first time she has been able to get out of bed since surgery, states that pain continues to be well- controlled. Continues to meet selectively with PT and OT. RN notes that patient has still not had a bowel movement, refused some Miralax doses, recently began refusing to urinate and had to be straight cathed. Review of Systems Review of Systems: All systems reviewed & are unremarkable except as noted in HPI & below Physical Exam Constitutional: WD/WN, vitals as above no apparent distress but patient appears guarded Respiratory: normal respiratory effort, lungs clear to auscultation Cardiovascular: RRR, no murmur, no edema Gastrointestinal (Abdomen): normal bowel sounds, soft, nontender, no hepatosplenomegaly Musculoskeletal: LE neurovascular status intact bilaterally, toes mobile Skin: no rashes, warm and dry Results & Data Results & Data Vital Signs (Past 12 Hours) Vital Signs Temp Pulse Resp BP Pulse Ox O2 Del Method 10/13/22 20:10 Room Air 10/13/22 20:06 36.9 C 82 18 131/78 94 Room Air (1) Ankle fracture, right Encounter type: initial encounter Fracture type: open
[2022-10-14 08:26] LABS: Basophils # (auto) 0.07 K/uL (0-0.2); Basophils % (auto) 0.5 %; Eosinophils # (auto) 0.17 K/uL (0-0.50); Eosinophils % (auto) 1.3 %; Hematocrit (blood only) 30.8 % (37.0-47.0); Hemoglobin 10.6 g/dl (12.0-16.0); Immature Granulocytes # (auto) 0.07 K/uL (0.01-0.20); Immature Granulocytes % (auto) 0.5 %; Lymphocytes # (auto) 1.28 K/uL (1.2-3.4); Lymphocytes % (auto) 9.7 %; Mean Corpuscular Hemoglobin 30.6 pg (25.0-34.0); Mean Corpuscular Hgb Conc 34.4 g/dL (32.0-36.0); Mean Platelet Volume 10.2 fL (9.4-12.4); Monocytes # (auto) 0.75 K/uL (0.11-0.59); Monocytes % (auto) 5.7 %; Neutrophils % (auto) 82.3 %; Platelet Count 282 K/uL (130-400); RDW Coefficient of Variation 13.5 % (11.5-14.5); RDW Standard Deviation 43.8 fL (36.4-46.3); Red Blood Count 3.46 M/uL (4.20-5.40); White Blood Count 13.14 K/ul (4.8-10.8)
[2022-10-14] MEDS: lisinopril 40 MG TAB PO SCH (08:51)
[2022-10-14] MEDS: ASPIRIN 81 MG ECTAB PO SCH (08:51)
[2022-10-14] MEDS: VENLAFAXINE HCL XR 150 MG CAPXR PO SCH (08:51)
[2022-10-14] MEDS: MULTIVITAMIN TAB PO SCH (08:51)
[2022-10-14] MEDS: LANTUS PER UNIT CHARGE SQ SCH ×2 (08:51→20:58)
[2022-10-14] MEDS: ATENOLOL 50 MG TABLET PO SCH (08:51)
[2022-10-14] MEDS: amLODIPine BESYLATE 5 MG TAB PO SCH (08:51)
[2022-10-14] MEDS: DOCUSATE SODIUM 100 MG CAP PO SCH ×2 (08:51→20:03)
[2022-10-14] MEDS: INSULIN ASPART PER UNIT CHARGE SC SCH ×4 (08:52→20:58)
[2022-10-14 08:55] LABS: Albumin Globulin Ratio 1.2 (0.9-2); Albumin Level 3.5 gm/dl (3.4-5.0); BUN Creatinine Ratio 21.2 (10-20); Bilirubin,Total 1.2 mg/dl (0.2-1.0); Calcium 9.1 mg/dl (8.6-10.3); Creatinine Clr Calc Pharmacy 82.5 ml/min; Est GFR (African American) 67.2 ml/min; Est GFR (Non-African American) 57.9 ml/min; Potassium 3.8 mmol/L (3.5-5.1); Total Protein 6.5 gm/dl (6.0-8.3)
[2022-10-14] MEDS: oxyCODONE/ACETAMINOPHEN 5mg/325mg TAB PO PRN ×2 (08:58→20:02)
[2022-10-14] MEDS ORDERED: hydrOXYzine HCl 25 MG TAB PO PRN (11:28)
[2022-10-14] MEDS ORDERED: bisacodyL 10 MG SUPP PR STA (13:59)
[2022-10-14] MEDS: MAGNESIUM HYDROXIDE SUSP 30 ML UDC PO PRN (14:28)
[2022-10-14] MEDS: SENNA 8.6 MG TAB PO SCH (20:02)
[2022-10-14] MEDS: traZODone HCL 50 MG TAB PO SCH (20:04)
[2022-10-15] MEDS: POLYETHYLENE (MIRALAX) 17 GM PACK PO SCH ×5 (03:39→14:36)
[2022-10-15] MEDS: oxyCODONE/ACETAMINOPHEN 5mg/325mg TAB PO PRN ×2 (05:47→11:28)
--- NOTE | 2022-10-15 06:50 | Hospitalist Progress Note ---
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 - NPO/IVF - d/c narcotics/vistaril - Hold amlodipine - NGT - Ambulate #Urinary retention - Needing straight cath, likely from constipation - 24 hour urine output 600mL - Reporting lack of urinary urge. check L/S xray #Elevated WBC Count: - WBC 14.76 today 10/15 - likely volume contracted - IVF. - UA ordered #Hypotension -Hold norvasc. #R-ankle fracture 10/09 ORIF right bimalleolar fracture - Pain control tylenol, prn. holding percocet due to ileus. will utilize nsaids. - Zofran PRN - Orthopedic sign off case, the will follow outpatient in 10-14 days - PT/OT: Non weight bearing right lower extremity. Weight bearing as tolerated left leg with knee immobilizer on. - Case management on case, SNF referrals submitted, placement pending. #Acute blood loss anemia -stable at 10.1 #Generalized anxiety ds - On venlafaxin, Trazodone - Consult [facility] liason for support. Having worse symptoms in last 2 days. #L-knee dislocation s/p reduction in ED #T2DM ISS while inpatient Last A1c 6.1 #Diabetic nephropathy at baseline #HTN Norvasc 10 mg q Daily - hold (10/15) Atenolol 50 mg q daily Lisinopril 40 mg q daily #DCIS w/breast comedonecrosis New diagnosis, stable follow-up Dr. Soria outpatient Disposition: MedSurg Diet: Carb consistent DVT prophylaxis: aspirin 81mgs daily CODE STATUS: Full code Admission and Anticipated Discharge Date Admission Date: October 08, 2022 Supervising Physician Co-Signing Physician Notes Resident Physician Supervision Note: I independently interviewed and examined the patient and verified the padilla history and physical, reviewed labs and image studies and agree with resident findings and care plan. Subjective Patient evaluated at bedside, appears to be in a brighter mood today. Patient notes that she had a bowel movement since last seen, is amenable to continued bowel regimen. Patient notes ongoing difficulty with urination, states that she does not get the urge to urinate even when bladder scan shows that her bladder is full. This has been present for the past 2 days. Denies dysuria or pelvic discomfort. Denies fever of chills. Pain well controlled, patients rates current pain as 3/10. Review of Systems Review of Systems: All systems reviewed & are unremarkable except as noted in HPI & below Physical Exam Constitutional: WD/WN, vitals as above not in distress Respiratory: normal respiratory effort, lungs clear to auscultation Cardiovascular: RRR, no murmur, no edema Gastrointestinal (Abdomen): normal bowel sounds, soft, nontender, no hepatosplenomegaly Musculoskeletal: Able to wiggle toes on right foot Skin: no rashes, warm and dry Exposed skin proximally and distally to cast on right ankle negative for swelling or erythema Results & Data Results & Data Vital Signs (Past 12 Hours) Vital Signs Temp Pulse Resp BP Pulse Ox O2 Del Method 10/14/22 19:15 Room Air 10/14/22 20:42 36.8 C 81 16 117/74 91 Room Air Resident Activity Tracking Resident Involvement: Resident Care Provided Care Provided: Adult Hospital Medicine (1) Ankle fracture, right Encounter type: initial encounter Fracture type: open
[2022-10-15 07:50] LABS: Basophils # (auto) 0.08 K/uL (0-0.2); Basophils % (auto) 0.5 %; Eosinophils % (auto) 1.4 %; Hematocrit (blood only) 30.5 % (37.0-47.0); Hemoglobin 10.1 g/dl (12.0-16.0); Immature Granulocytes # (auto) 0.09 K/uL (0.01-0.20); Immature Granulocytes % (auto) 0.6 %; Lymphocytes # (auto) 1.42 K/uL (1.2-3.4); Lymphocytes % (auto) 9.6 %; Mean Corpuscular Hemoglobin 30.1 pg (25.0-34.0); Mean Corpuscular Hgb Conc 33.1 g/dL (32.0-36.0); Mean Platelet Volume 10.3 fL (9.4-12.4); Monocytes # (auto) 1.04 K/uL (0.11-0.59); Neutrophils # (auto) 11.93 K/uL (1.40-6.50); Neutrophils % (auto) 80.9 %; Platelet Count 302 K/uL (130-400); RDW Coefficient of Variation 13.7 % (11.5-14.5); RDW Standard Deviation 46.2 fL (36.4-46.3); Red Blood Count 3.35 M/uL (4.20-5.40); White Blood Count 14.76 K/ul (4.8-10.8)
[2022-10-15 08:11] LABS: Albumin Globulin Ratio 1.1 (0.9-2); Albumin Level 3.4 gm/dl (3.4-5.0); Bilirubin,Total 1.1 mg/dl (0.2-1.0); Creatinine Clr Calc Pharmacy 68.1 ml/min; Est GFR (African American) 53.3 ml/min; Est GFR (Non-African American) 45.9 ml/min; Total Protein 6.4 gm/dl (6.0-8.3)
[2022-10-15] MEDS: lisinopril 40 MG TAB PO SCH (08:36)
[2022-10-15] MEDS: ASPIRIN 81 MG ECTAB PO SCH (08:36)
[2022-10-15] MEDS: MULTIVITAMIN TAB PO SCH (08:37)
[2022-10-15] MEDS: amLODIPine BESYLATE 5 MG TAB PO SCH (08:37)
[2022-10-15] MEDS: ATENOLOL 50 MG TABLET PO SCH (08:37)
[2022-10-15] MEDS: VENLAFAXINE HCL XR 150 MG CAPXR PO SCH (08:37)
[2022-10-15] MEDS: DOCUSATE SODIUM 100 MG CAP PO SCH ×2 (08:37→20:37)
[2022-10-15] MEDS: LANTUS PER UNIT CHARGE SQ SCH ×2 (08:44→21:17)
[2022-10-15] MEDS: INSULIN ASPART PER UNIT CHARGE SC SCH ×4 (08:44→23:35)
[2022-10-15] MEDS ORDERED: SODIUM CHLORIDE 0.9% 250 ML IV ONE (09:45)
--- NOTE | 2022-10-15 13:35 | XRay Report ---
KUB HISTORY: constipation COMPARISON: None. FINDINGS: Distended and gas-filled colon seen throughout the abdomen to the level the rectosigmoid ju nction. The transverse colon measures up to 11.8 cm. There are few mildly dilated gas-filled loops of small bowel also seen within the abdomen measuring up to 3.5 cm. No renal calculi. No ureteral calc josé. No pneumoperitoneum or pneumatosis. IMPRESSION: Distended and gas-filled colon to the level of the rectosigmoid junction. There is also a few mildly dilated gas-filled loops of small bowel. This favors an ileus. A distal large bowel obstruction could also have a similar appearance in the appropriate clinical setting. Follow up recommended to ensure stability/resolution. ACT 112: Negative or not required by law. Electronically signed by: Teto Bridges M.D. 10/15/2022 1:33 PM
[2022-10-15 15:31] LABS: Appearance Urine Cloudy (Clear); Bilirubin Urine Negative (Negative); Blood Urine 2+ (Negative); Color Urine Dark Yellow; Glucose Urine UA Negative (Negative); Ketones Urine Negative (Negative); Leukocyte Esterase Urine 2+ (Negative); Nitrite Urine Negative (Negative); Protein Urine Trace (Negative); Specific Gravity Urine 1.025 (1.000-1.030); Urobilinogen Urine Negative (Negative); WBC Urine Automated >30 /hpf (0-5); pH Urine 5.5 (4.5-7.5)
[2022-10-15 15:56] LABS: Bacteria Urine Automated 2+ (Negative); RBC Urine Automated 0-4 /hpf (0-4)
[2022-10-15] MEDS: LACTATED RINGER'S 1,000 ML IV SCH (17:21)
[2022-10-15] MEDS: traZODone HCL 50 MG TAB PO SCH (20:36)
[2022-10-15] MEDS: SENNA 8.6 MG TAB PO SCH (20:37)
[2022-10-15] MEDS ORDERED: Nursing to Pharmacy Communication SCH (20:45)
[2022-10-16] MEDS: LACTATED RINGER'S 1,000 ML IV SCH ×2 (05:59→20:05)
[2022-10-16] MEDS: INSULIN ASPART PER UNIT CHARGE SC SCH ×5 (06:16→20:19)
[2022-10-16] MEDS ORDERED: cefTRIAXone SODIUM 1,000 MG in DEXTROSE 5% AD-VAN 50 ML IV SCH (07:00)
--- NOTE | 2022-10-16 07:14 | Hospitalist Progress Note ---
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 - Continues to have no nausea/vomiting. Passing gas. - Electrolytes stable. - Advance diet to clear liquids - d/c narcotics/vistaril and held CCB -amlodipine - Ambulate #Urinary retention - Orantes catheter - 24 hour urine output 950mL - Reporting lack of urinary urge - Lumbar spine MRI ordered. #UTI: - WBC 12.1 today 10/16 - Urine cx >100k G neg bacilli - Continue Ceftriaxone 2g daily #R-ankle fracture 10/09 ORIF right bimalleolar fracture - Pain control tylenol, prn. holding percocet due to ileus. will utilize nsaids. - Zofran PRN - Orthopedic sign off case, the will follow outpatient in 10-14 days - PT/OT: Non weight bearing right lower extremity. Weight bearing as tolerated left leg with knee immobilizer on. - Case management on case, SNF referrals submitted, placement pending. #Acute blood loss anemia -stable at 10.0 #Generalized anxiety ds - On venlafaxin, Trazodone - [facility] ct for support. #L-knee dislocation s/p reduction in ED #T2DM ISS while inpatient Last A1c 6.1 #Diabetic nephropathy at baseline #HTN Norvasc 10 mg q Daily - hold (10/15) for ileus Atenolol 50 mg q daily Lisinopril 40 mg q daily #DCIS w/breast comedonecrosis New diagnosis, stable follow-up Dr. Soria outpatient Disposition: MedSurg Diet: Clear liquids DVT prophylaxis: aspirin 81mgs daily CODE STATUS: Full code Admission and Anticipated Discharge Date Admission Date: October 08, 2022 Supervising Physician Co-Signing Physician Notes Resident Physician Supervision Note: I independently interviewed and examined the patient and verified the padilla history and physical, reviewed labs and image studies and agree with resident findings and care plan. Subjective Pt evaluated at bedside, in no apparent distress. Patient notes that pain is well controlled despite cessation of percocet. Patient also notes that she still does not feel the urge to urinate. Belives last bowel movement was last night. Patient able to pass gas. Denies abdominal pain Review of Systems Review of Systems: All systems reviewed & are unremarkable except as noted in HPI & below Physical Exam Constitutional: WD/WN, vitals as above no acute distress Respiratory: normal respiratory effort, lungs clear to auscultation Cardiovascular: RRR, no murmur, no edema Gastrointestinal (Abdomen): Bowel sounds hypoactive, abdomen nontender to palpation Musculoskeletal: 5/5 strength in UEs, 4-/5 strength on LE hip flexion bilaterally Skin: no rashes, warm and dry Neurologic: AOx4, speech intact, CN II-XII intact, sensation intact in all four extremities proximally and distally Results & Data Results & Data Vital Signs (Past 12 Hours) Vital Signs Temp Pulse Resp BP Pulse Ox O2 Del Method 10/15/22 20:39 36.6 C 79 16 114/70 96 Room Air Resident Activity Tracking Resident Involvement: Resident Care Provided Care Provided: Adult Hospital Medicine (1) Ankle fracture, right Encounter type: initial encounter Fracture type: open
[2022-10-16] MEDS: cefTRIAXone SODIUM 2,000 MG in DEXTROSE 5% 50 ML IV SCH (07:56)
[2022-10-16] MEDS: DOCUSATE SODIUM 100 MG CAP PO SCH ×2 (08:03→20:06)
[2022-10-16 08:04] LABS: Basophils # (auto) 0.07 K/uL (0-0.2); Basophils % (auto) 0.6 %; Eosinophils # (auto) 0.33 K/uL (0-0.50); Eosinophils % (auto) 2.7 %; Hematocrit (blood only) 29.7 % (37.0-47.0); Immature Granulocytes # (auto) 0.09 K/uL (0.01-0.20); Immature Granulocytes % (auto) 0.7 %; Lymphocytes # (auto) 1.39 K/uL (1.2-3.4); Lymphocytes % (auto) 11.5 %; Mean Corpuscular Hemoglobin 30.8 pg (25.0-34.0); Mean Corpuscular Hgb Conc 33.7 g/dL (32.0-36.0); Mean Corpuscular Volume 91.4 fL (80.0-100.0); Mean Platelet Volume 10.4 fL (9.4-12.4); Monocytes # (auto) 0.94 K/uL (0.11-0.59); Monocytes % (auto) 7.8 %; Neutrophils # (auto) 9.28 K/uL (1.40-6.50); Neutrophils % (auto) 76.7 %; Platelet Count 294 K/uL (130-400); RDW Coefficient of Variation 13.8 % (11.5-14.5); RDW Standard Deviation 46.5 fL (36.4-46.3); Red Blood Count 3.25 M/uL (4.20-5.40)
[2022-10-16] MEDS: VENLAFAXINE HCL XR 150 MG CAPXR PO SCH (08:04)
[2022-10-16] MEDS: ASPIRIN 81 MG ECTAB PO SCH (08:04)
[2022-10-16] MEDS: ATENOLOL 50 MG TABLET PO SCH (08:04)
[2022-10-16] MEDS: lisinopril 40 MG TAB PO SCH (08:04)
[2022-10-16] MEDS: MULTIVITAMIN TAB PO SCH (08:04)
[2022-10-16 08:18] LABS: Albumin Globulin Ratio 1.1 (0.9-2); Albumin Level 3.3 gm/dl (3.4-5.0); BUN Creatinine Ratio 25.4 (10-20); Bilirubin,Total 1.1 mg/dl (0.2-1.0); Calcium 8.8 mg/dl (8.6-10.3); Creatinine Clr Calc Pharmacy 70.3 ml/min; Est GFR (African American) 55.4 ml/min; Est GFR (Non-African American) 47.8 ml/min; Potassium 3.9 mmol/L (3.5-5.1); Total Protein 6.3 gm/dl (6.0-8.3)
--- NOTE | 2022-10-16 08:37 | XRay Report ---
XR lumbar spine 2-3V CLINICAL HISTORY: Constipation c/f radiculopathy COMPARISON STUDY: KUB performed earlier today. Lumbar spine radiographs January 12, 2022. FINDINGS: No lumbar spine fracture is present. No osseous lesions are noted. There is moderate multil evel disc space narrowing, osteophytosis and facet arthrosis within the lumbar spine. Note is made of significant gaseous distention of the colon. This is partially imaged on this exam but appears relat ively similar to KUB performed earlier today. IMPRESSION: 1. No lumbar spine fracture or subluxation. 2. Moderate multilevel degenerative disc disease and facet arthrosis within the lumbar spine. 3. Significant gaseous distention of the colon, partially imaged on this exam. This is relatively sim ilar to KUB of October 15, 2022. This remains nonspecific and could reflect an ileus. However, a large b owel obstruction could appear similar and therefore radiographic follow-up is recommended. ACT 112: Negative or not required by law. Electronically signed by: Rafi Astorga M.D. 10/16/2022 8:35 AM
[2022-10-16] MEDS: LANTUS PER UNIT CHARGE SQ SCH ×2 (09:18→20:25)
--- NOTE | 2022-10-16 13:42 | XRay Report ---
KUB HISTORY: Ileus. Abdominal distention. Follow-up. COMPARISON: KUB 10/15/2022. FINDINGS: Multiple dilated gas-filled loops of large and small bowel are seen throughout the abdomen. This is most pronounced within the colon which measures up to 10 cm in diameter. This is similar to the prior study. Small amount of gas is now seen within the rectum. Therefore, this favors an ileus. No renal calculi. No ureteral calculi. No pneumoperitoneum or pneumatosis. IMPRESSION: Multiple dilated gas-filled loops of large and small bowel seen throughout the abdomen which favors a n ileus. This is similar to the prior study. A distal large bowel obstruction would also be considere d in differential diagnosis. ACT 112: Negative or not required by law. Electronically signed by: Teto Bridges M.D. 10/16/2022 1:41 PM
--- NOTE | 2022-10-16 15:46 | Magnetic Resonance Report ---
MRI OF THE LUMBAR SPINE WITHOUT CONTRAST CLINICAL HISTORY: Severe low back pain. Fall one week ago. COMPARISON STUDY: Lumbar spine radiographs October 15, 2022. TECHNIQUE: Utilizing a 1.5 Lisa magnet and dedicated coil, multiplanar, multiecho imaging of the [facility] spine was performed without IV contrast. Due to patient's significant pain, axial T1 sequence co uld not be obtained. FINDINGS: For purposes of numbering on this exam, the L5-S1 disc space is assigned to axial image 27 of 30. Niko tebral body heights are maintained. There is no lumbar spine fracture. No suspicious marrow replaceme nt is present. Discogenic changes at the L2-L3 level are noted. The conus terminates at the mid L1 le douglas. There is trace presacral fluid. There is no intracanalicular mass or fluid collection. L1-2: There is mild disc space narrowing with disc bulge, moderate facet arthrosis and ligamentous hy pertrophy. There is mild narrowing of the central canal and lateral recesses. The neural foramen are patent. L2-3: There is moderate to severe disc space narrowing with disc bulge, moderate facet arthrosis and ligamentous hypertrophy. There is mild narrowing of the central canal and lateral recesses as well as both neural foramen. L3-4: There is severe disc space narrowing with moderate facet arthrosis and ligamentous hypertrophy. Central canal is patent. There is moderate right and mild left neural foraminal stenosis. L4-5: There is mild disc space narrowing with disc bulge with facet arthrosis and ligamentous hypertr ophy. There is mild narrowing of the central canal and moderate narrowing of the neural foramen. L5-S1: The central canal and neural foramen are patent. IMPRESSION: 1. No acute process within the lumbar spine MRI. No fractures. 2. Moderate multilevel degenerative disc disease and facet arthrosis. No severe central canal stenosi s. Mild multilevel central canal stenosis. 3. Moderate multilevel neural foraminal stenosis, as detailed above. ACT 112: Negative or not required by law. Electronically signed by: Rafi Astorga M.D. 10/16/2022 3:45 PM
[2022-10-16] MEDS ORDERED: Nursing to Pharmacy Communication SCH ×2 (18:00→20:45)
[2022-10-16] MEDS ORDERED: MELATONIN 3 MG TAB PO PRN (18:48)
[2022-10-16] MEDS: SENNA 8.6 MG TAB PO SCH (20:06)
[2022-10-16] MEDS: traZODone HCL 50 MG TAB PO SCH (20:06)
[2022-10-17] MEDS: cefTRIAXone SODIUM 2,000 MG in DEXTROSE 5% 50 ML IV SCH (05:50)
--- NOTE | 2022-10-17 06:23 | Hospitalist Progress Note ---
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 - Continues to have no nausea/vomiting. Passing gas. - Electrolytes stable. - Advance diet as tolerated - d/c IVF - d/c narcotics/vistaril and held CCB -amlodipine - Ambulate #Urinary retention - Orantes catheter - 24 hour urine output 1250mL - Reporting lack of urinary urge - Lumbar spine MRI negative for acute compression - consider voiding trial once ambulating well #UTI: - WBC 14.71 today 10/16 - Urine cx >100k G neg bacilli - Continue Ceftriaxone 2g daily #R-ankle fracture 10/09 ORIF right bimalleolar fracture - Pain control tylenol, prn. holding percocet due to ileus. will utilize nsaids. - Zofran PRN - Orthopedic sign off case, the will follow outpatient in 10-14 days - PT/OT: Non weight bearing right lower extremity. Weight bearing as tolerated left leg with knee immobilizer on. - Case management on [facility] bed availability pending #Acute blood loss anemia -stable at 11.6 #Generalized anxiety ds - On venlafaxin, Trazodone - [facility] ct for support. #L-knee dislocation s/p reduction in ED #T2DM ISS while inpatient Last A1c 6.1 #Diabetic nephropathy at baseline #HTN Norvasc 10 mg q Daily - hold (10/15) for ileus Atenolol 50 mg q daily Lisinopril 40 mg q daily #DCIS w/breast comedonecrosis New diagnosis, stable follow-up Dr. Soria outpatient Disposition: MedSurg Diet: Advance as tolerated DVT prophylaxis: aspirin 81mgs daily CODE STATUS: Full code Admission and Anticipated Discharge Date Admission Date: October 08, 2022 Supervising Physician Co-Signing Physician Notes Resident Physician Supervision Note: I independently interviewed and examined the patient and verified the padilla history and physical, reviewed labs and image studies and agree with resident findings and care plan. Subjective Patient evaluated at bedside, found in no apparent distress. Pt notes that she has been having bowel incontinence since this morning, reports watery diarrhea greater than 5 times today. Denies abdominal pain, denies nausea/vomiting. Also notes that she continues to work with PT. Ankle pain is well-controlled. Review of Systems Review of Systems: All systems reviewed & are unremarkable except as noted in HPI & below Physical Exam Constitutional: WD/WN, vitals as above no acute distress Respiratory: normal respiratory effort, lungs clear to auscultation Cardiovascular: RRR, no murmur, no edema Gastrointestinal (Abdomen): normal bowel sounds, soft, nontender, no hepatosplenomegaly Skin: no rashes, warm and dry Results & Data Results & Data Vital Signs (Past 12 Hours) Vital Signs Temp Pulse Resp BP Pulse Ox O2 Del Method 10/16/22 20:04 36.5 C 80 18 150/84 H 95 Room Air Resident Activity Tracking Resident Involvement: Resident Care Provided Care Provided: Adult Hospital Medicine (1) Ankle fracture, right Encounter type: initial encounter Fracture type: open
[2022-10-17 06:44] LABS: Albumin Globulin Ratio 1.1 (0.9-2); Albumin Level 3.5 gm/dl (3.4-5.0); Calcium 9.2 mg/dl (8.6-10.3); Creatinine Clr Calc Pharmacy 71.5 ml/min; Est GFR (African American) 56.5 ml/min; Est GFR (Non-African American) 48.7 ml/min; Globulin 3.2 gm/dl (2.5-4.0); Potassium 4.2 mmol/L (3.5-5.1); Total Protein 6.7 gm/dl (6.0-8.3)
[2022-10-17] MEDS: ASPIRIN 81 MG ECTAB PO SCH (07:40)
[2022-10-17] MEDS: lisinopril 40 MG TAB PO SCH (07:40)
[2022-10-17] MEDS: ATENOLOL 50 MG TABLET PO SCH (07:40)
[2022-10-17] MEDS: DOCUSATE SODIUM 100 MG CAP PO SCH (07:41)
[2022-10-17] MEDS: VENLAFAXINE HCL XR 150 MG CAPXR PO SCH (07:41)
[2022-10-17] MEDS: LACTATED RINGER'S 1,000 ML IV SCH (07:41)
[2022-10-17] MEDS: MULTIVITAMIN TAB PO SCH (07:41)
[2022-10-17] MEDS: INSULIN ASPART PER UNIT CHARGE SC SCH ×4 (08:11→21:37)
[2022-10-17] MEDS: LANTUS PER UNIT CHARGE SQ SCH ×2 (08:17→21:40)
[2022-10-17 09:45] LABS: Basophils # (auto) 0.08 K/uL (0-0.2); Basophils % (auto) 0.5 %; Eosinophils # (auto) 0.09 K/uL (0-0.50); Eosinophils % (auto) 0.6 %; Hematocrit (blood only) 35.2 % (37.0-47.0); Hemoglobin 11.6 g/dl (12.0-16.0); Immature Granulocytes # (auto) 0.09 K/uL (0.01-0.20); Immature Granulocytes % (auto) 0.6 %; Lymphocytes # (auto) 1.12 K/uL (1.2-3.4); Lymphocytes % (auto) 7.6 %; Mean Corpuscular Hemoglobin 30.1 pg (25.0-34.0); Mean Corpuscular Volume 91.4 fL (80.0-100.0); Mean Platelet Volume 10.7 fL (9.4-12.4); Monocytes # (auto) 0.87 K/uL (0.11-0.59); Monocytes % (auto) 5.9 %; Neutrophils # (auto) 12.46 K/uL (1.40-6.50); Neutrophils % (auto) 84.8 %; Platelet Count 415 K/uL (130-400); RDW Coefficient of Variation 13.5 % (11.5-14.5); RDW Standard Deviation 45.1 fL (36.4-46.3); Red Blood Count 3.85 M/uL (4.20-5.40); White Blood Count 14.71 K/ul (4.8-10.8)
[2022-10-17] MEDS: traZODone HCL 50 MG TAB PO SCH (21:38)
[2022-10-18] MEDS: cefTRIAXone SODIUM 2,000 MG in DEXTROSE 5% 50 ML IV SCH (05:53)
--- NOTE | 2022-10-18 07:14 | Hospitalist Progress Note ---
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 - Continues to have no nausea/vomiting. Passing gas. - Electrolytes stable. - Advance diet as tolerated - d/c IVF - d/c narcotics/vistaril and held CCB -amlodipine - Ambulate - Resolved #Diarrhea: - Multiple watery stools per day x 2 days - 7 bowel movements today per nursing - Cdiff testing ordered #Urinary retention - Orantes catheter - 24 hour urine output 1025mL - Reporting lack of urinary urge - Lumbar spine MRI negative for acute compression - consider voiding trial once ambulating well #UTI: - WBC 14.3 today - Urine cx >100k G neg bacilli - Continue Ceftriaxone 2g daily - Plan to transition to PO cefdinir tomorrow #R-ankle fracture 10/09 ORIF right bimalleolar fracture - Pain control tylenol, prn. - Zofran PRN - Orthopedic sign off case, the will follow outpatient in 10-14 days - PT/OT: Non weight bearing right lower extremity. Weight bearing as tolerated left leg with knee immobilizer on. - Case management on [facility] bed availability pending #Acute blood loss anemia -stable at 10.8 #Generalized anxiety ds - On venlafaxin, Trazodone - [facility] ct for support. #L-knee dislocation s/p reduction in ED #T2DM ISS while inpatient Last A1c 6.1 #Diabetic nephropathy at baseline #HTN Norvasc 10 mg q Daily - hold (10/15) for ileus Atenolol 50 mg q daily Lisinopril 40 mg q daily #DCIS w/breast comedonecrosis New diagnosis, stable follow-up Dr. Soria outpatient Disposition: MedSurg Diet: Advance as tolerated DVT prophylaxis: Lovenox 40BID CODE STATUS: Full code Admission and Anticipated Discharge Date Admission Date: October 08, 2022 Supervising Physician Co-Signing Physician Notes Attending Attestation and Progress Note: Pt seen/examined, chart reviewed, care plan d/w PGY1 Dr Ciaran Nieto. I agree w/ the padilla components of his documentation. Patient resting in bed with blinds drawn and lights off. Asked if she was feeling depressed - denied such, states she likes the room like this so she can meditate. Appetite is poor/fair. Still w/ liquid stools. No abd pain but mild bloating. No dyspnea. Pain in legs controlled. VSS, no fever gen - obese, NAD neck - no JVD heart - RRR, s1 s2, no murmur lungs - CTA b/l abd - mildly distended, BS+, NT, no HSM ext - right ankle in splint, left leg in knee immobilizer, pulses b/l feet 2+ A/P: 1. right ankle fracture s/p ORIF; cont NWB status; check 25-OH vit D level am 2. e.coli UTI - cont rocephin, change to PO cefdinir in am 3. ileus - resolving, now with copious diarrhea - check a c diff 4. left knee dislocation s/p reduction; cont knee immobilizer 5. leukocytosis - likely 2nd to #2, #3 - trend 6. DVT proph - add lovenox 40mg BID; d/c once daily aspirin rehab post-d/c Freddie Mcguire MD Subjective Patient evaluated at bedside, in no apparent distress. Patient reports that diarrhea/bowel incontinence has improved since yesterday but notes that she has a small amount of loose stool passage when she passes gas sometimes. Per nurse, patient has had a total of 7 liquidy stools today. Patient reports pain is well- controlled. Diet progressing as tolerated, patient notes that she started eating regular meals last night with no issues so far. Review of Systems Review of Systems: All systems reviewed & are unremarkable except as noted in HPI & below Physical Exam Constitutional: WD/WN, vitals as above no acute distress Respiratory: normal respiratory effort, lungs clear to auscultation Cardiovascular: RRR, no murmur, no edema Gastrointestinal (Abdomen): normal bowel sounds, soft, nontender, no hepatosplenomegaly Musculoskeletal: LE strength 3/5 bilaterally on hip flexion, patient able to moves toes with full ROM Skin: no rashes, warm and dry Results & Data Results & Data Vital Signs (Past 12 Hours) Vital Signs Temp Pulse Resp BP Pulse Ox O2 Del Method 10/17/22 22:44 36.8 C 80 14 130/76 94 Room Air Resident Activity Tracking Resident Involvement: Resident Care Provided Care Provided: Adult Hospital Medicine (1) Ankle fracture, right Encounter type: initial encounter Fracture type: open
[2022-10-18] MEDS: INSULIN ASPART PER UNIT CHARGE SC SCH ×4 (08:59→21:26)
[2022-10-18] MEDS: ASPIRIN 81 MG ECTAB PO SCH (09:00)
[2022-10-18] MEDS: MULTIVITAMIN TAB PO SCH (09:00)
[2022-10-18] MEDS: ATENOLOL 50 MG TABLET PO SCH (09:00)
[2022-10-18] MEDS: lisinopril 40 MG TAB PO SCH (09:00)
[2022-10-18] MEDS: VENLAFAXINE HCL XR 150 MG CAPXR PO SCH (09:00)
[2022-10-18] MEDS: LANTUS PER UNIT CHARGE SQ SCH ×2 (09:01→21:26)
[2022-10-18 09:51] LABS: Albumin Level 3.4 gm/dl (3.4-5.0); BUN Creatinine Ratio 21.2 (10-20); Bilirubin,Total 0.8 mg/dl (0.2-1.0); Creatinine Clr Calc Pharmacy 72.7 ml/min; Est GFR (African American) 57.6 ml/min; Est GFR (Non-African American) 49.7 ml/min; Globulin 3.3 gm/dl (2.5-4.0); Potassium 3.9 mmol/L (3.5-5.1); Total Protein 6.7 gm/dl (6.0-8.3)
[2022-10-18 09:52] LABS: Basophils # (auto) 0.09 K/uL (0-0.2); Basophils % (auto) 0.6 %; Eosinophils # (auto) 0.43 K/uL (0-0.50); Eosinophils % (auto) 2.9 %; Hematocrit (blood only) 32.5 % (37.0-47.0); Hemoglobin 10.8 g/dl (12.0-16.0); Immature Granulocytes # (auto) 0.12 K/uL (0.01-0.20); Immature Granulocytes % (auto) 0.8 %; Lymphocytes # (auto) 1.41 K/uL (1.2-3.4); Lymphocytes % (auto) 9.4 %; Mean Corpuscular Hemoglobin 30.1 pg (25.0-34.0); Mean Corpuscular Hgb Conc 33.2 g/dL (32.0-36.0); Mean Corpuscular Volume 90.5 fL (80.0-100.0); Mean Platelet Volume 10.3 fL (9.4-12.4); Monocytes # (auto) 0.94 K/uL (0.11-0.59); Monocytes % (auto) 6.3 %; Neutrophils # (auto) 11.94 K/uL (1.40-6.50); Platelet Count 433 K/uL (130-400); RDW Coefficient of Variation 13.7 % (11.5-14.5); RDW Standard Deviation 45.1 fL (36.4-46.3); Red Blood Count 3.59 M/uL (4.20-5.40); White Blood Count 14.93 K/ul (4.8-10.8)
[2022-10-18] MEDS: ENOXAPARIN INJ 40 MG/0.4 ML SYR SQ SCH (13:29)
[2022-10-18] MEDS: PANTOprazole 40 MG TAB PO SCH (16:13)
[2022-10-18] MEDS ORDERED: LOPERAMIDE HCL 2 MG CAP PO STA (19:56)
[2022-10-18] MEDS: traZODone HCL 50 MG TAB PO SCH (21:26)
[2022-10-18] MEDS ORDERED: Nursing to Pharmacy Communication SCH (23:45)
[2022-10-19] MEDS: cefTRIAXone SODIUM 2,000 MG in DEXTROSE 5% 50 ML IV SCH (06:00)
[2022-10-19] MEDS: ENOXAPARIN INJ 40 MG/0.4 ML SYR SQ SCH ×2 (06:01→18:02)
[2022-10-19 06:23] LABS: Basophils # (auto) 0.08 K/uL (0-0.2); Basophils % (auto) 0.6 %; Eosinophils # (auto) 0.61 K/uL (0-0.50); Eosinophils % (auto) 4.3 %; Hematocrit (blood only) 32.9 % (37.0-47.0); Hemoglobin 11.2 g/dl (12.0-16.0); Immature Granulocytes # (auto) 0.13 K/uL (0.01-0.20); Immature Granulocytes % (auto) 0.9 %; Lymphocytes # (auto) 1.88 K/uL (1.2-3.4); Lymphocytes % (auto) 13.3 %; Mean Corpuscular Hemoglobin 30.6 pg (25.0-34.0); Mean Corpuscular Volume 89.9 fL (80.0-100.0); Mean Platelet Volume 10.1 fL (9.4-12.4); Monocytes # (auto) 1.06 K/uL (0.11-0.59); Monocytes % (auto) 7.5 %; Neutrophils % (auto) 73.4 %; Platelet Count 384 K/uL (130-400); RDW Coefficient of Variation 13.6 % (11.5-14.5); RDW Standard Deviation 44.7 fL (36.4-46.3); Red Blood Count 3.66 M/uL (4.20-5.40); White Blood Count 14.16 K/ul (4.8-10.8)
[2022-10-19 06:44] LABS: Albumin Globulin Ratio 1.2 (0.9-2); Albumin Level 3.6 gm/dl (3.4-5.0); BUN Creatinine Ratio 19.7 (10-20); Bilirubin,Total 0.9 mg/dl (0.2-1.0); Calcium 9.4 mg/dl (8.6-10.3); Creatinine Clr Calc Pharmacy 73.3 ml/min; Est GFR (African American) 58.2 ml/min; Est GFR (Non-African American) 50.3 ml/min; Globulin 3.1 gm/dl (2.5-4.0); Potassium 4.3 mmol/L (3.5-5.1); Total Protein 6.7 gm/dl (6.0-8.3)
[2022-10-19] MEDS: lisinopril 40 MG TAB PO SCH (08:12)
[2022-10-19] MEDS: PANTOprazole 40 MG TAB PO SCH (08:13)
[2022-10-19] MEDS: ATENOLOL 50 MG TABLET PO SCH (08:13)
[2022-10-19] MEDS: MULTIVITAMIN TAB PO SCH (08:13)
[2022-10-19] MEDS: VENLAFAXINE HCL XR 150 MG CAPXR PO SCH (08:13)
[2022-10-19] MEDS: INSULIN ASPART PER UNIT CHARGE SC SCH ×4 (08:59→20:22)
[2022-10-19] MEDS: LANTUS PER UNIT CHARGE SQ SCH ×2 (09:00→20:22)
--- NOTE | 2022-10-19 09:12 | Billing Data ---
Date of Service October 18, 2022 Coding Level of Care Code 75318 SUB INP/OBS CARE
[2022-10-19] MEDS ORDERED: ERGOCALCIFEROL 50,000 UNITS 1250 MCG CAP PO SCH (13:30)
--- NOTE | 2022-10-19 14:48 | XRay Report ---
CHEST AND ABDOMEN 2 VIEWS HISTORY: Abdominal distention. Ileus. COMPARISON: KUB 10/16/2022. FINDINGS: No pneumothorax. No pleural effusions. The heart is mildly enlarged. A few bibasilar linear densities favor subsegmental atelectasis. Otherwise, no focal lung consolidations to suggest a pneum onia. No evidence for pulmonary edema. Multiple dilated gas-filled loops of large and small bowel are again seen throughout the abdomen. The dilated loops of large bowel have slightly improved. The dila ray loops of small bowel have slightly progressed. There are small scattered fluid levels seen within the large and small bowel. These findings favor a persistent ileus. IMPRESSION: 1. Mild cardiomegaly. Otherwise, no acute process within the chest. 2. Dilated gas-filled loops of large and small bowel are again seen throughout the abdomen described above. This favors an ileus. ACT 112: Negative or not required by law. Electronically signed by: Teto Bridges M.D. 10/19/2022 2:47 PM
--- NOTE | 2022-10-19 16:37 | Hospitalist Progress Note ---
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 - Continues to have no nausea/vomiting. Passing gas. - Electrolytes stable. - Advance diet as tolerated - d/c IVF - d/c narcotics/vistaril and held CCB -amlodipine - Repeat chest/abdominal x-ray on 10/19 significant for persistent ileus - Ambulate - activity order placed #Diarrhea: - Multiple watery stools per day x 3 days - some improvement - Cdiff testing negative #Urinary retention - Orantes catheter - 24 hour urine output 775mL - Reporting lack of urinary urge - Lumbar spine MRI negative for acute compression - consider voiding trial once ambulating well #UTI: - WBC 14.16 today - Urine cx >100k G neg bacilli - Ceftriaxone discontinued - Start PO cefdinir tomorrow #R-ankle fracture 10/09 ORIF right bimalleolar fracture - Pain control tylenol, prn. - Zofran PRN - Orthopedic sign off case, the will follow outpatient in 10-14 days - PT/OT: Non weight bearing right lower extremity. Weight bearing as tolerated left leg with knee immobilizer on. - Case management on [facility] bed availability pending - Vitamin D lvl: 14.4, start ergocalciferol 50,000 units Qweekly #Acute blood loss anemia -stable at 11.2 #GERD: - Start Pantoprazole 40mg QD #Generalized anxiety ds - On venlafaxin, Trazodone - [facility]. #L-knee dislocation s/p reduction in ED #T2DM ISS while inpatient Last A1c 6.1 #Diabetic nephropathy at baseline #HTN Norvasc 10 mg q Daily - hold (10/15) for ileus Atenolol 50 mg q daily Lisinopril 40 mg q daily #DCIS w/breast comedonecrosis New diagnosis, stable follow-up Dr. Soria outpatient Disposition: MedSurg Diet: Advance as tolerated DVT prophylaxis: Lovenox 40BID CODE STATUS: Full code Admission and Anticipated Discharge Date Admission Date: October 08, 2022 Supervising Physician Co-Signing Physician Notes Attending Attestation and Progress Note: Pt seen/examined, chart reviewed, care plan d/w PGY1 Dr Ciaran Nieto. I agree w/ the padilla components of his documentation with the following addition --> abdominal exam with ongoing distension. Continues to have poor appetite. Passing minimal flatus. Liquid stools have slowed. Continues to feel bloated with frequent burping. No vomiting. VSS, no fever gen - obese, NAD neck - no JVD heart - RRR, s1 s2, no murmur lungs - CTA b/l abd - ongoing distension, BS+, NT, no HSM ext - right ankle in splint, left leg in knee immobilizer, pulses b/l feet 2+ A/P: 1. right ankle fracture s/p ORIF; cont NWB status; replace low vit D 2. e.coli UTI - cont rocephin, change to PO cefdinir in am 3. ileus - ongoing; likely cause of poor appetite; restart IV fluids; needs more mobilization / oob to chair; c diff negative 4. left knee dislocation s/p reduction; cont knee immobilizer 5. leukocytosis - likely 2nd to #2, #3 - trend 6. DVT proph - cont lovenox 40mg BID rehab post-d/c patient asks that Dr Jones revisit with her re: right ankle fracture and plan of care she also asks to speak with case management re: her daughter and potential for support services for her daughter (while patient is at rehab) Freddie Mcguire MD Subjective Patient notes that she still has poor appetite, has not been eating much since her diet was converted back to regular. Denies nausea and vomiting, but does endorse reflux symptoms. Denies abdominal pain. Continues to have some loose stool but overall improving. Pain continues to be well-controlled. Review of Systems Review of Systems: All systems reviewed & are unremarkable except as noted in HPI & below Physical Exam Constitutional: WD/WN, vitals as above Respiratory: normal respiratory effort, lungs clear to auscultation Cardiovascular: RRR, no murmur, no edema Gastrointestinal (Abdomen): normal bowel sounds, soft, nontender, no hepatosplenomegaly Musculoskeletal: 4/5 strength bilaterally in lower extremity hip flexion, patient able to wiggle toes Skin: no rashes, warm and dry Results & Data Results & Data Vital Signs (Past 12 Hours) Vital Signs Temp Pulse Resp BP Pulse Ox O2 Del Method 10/19/22 14:25 36.5 C 77 18 164/81 H 95 Room Air 10/19/22 07:00 36.8 C 72 16 150/80 H 96 Room Air Diagnostic Findings Chest/Abdomen X-ray 10/19/22 13:13 CHEST AND ABDOMEN 2 VIEWS HISTORY: Abdominal distention. Ileus. COMPARISON: KUB 10/16/2022. FINDINGS: No pneumothorax. No pleural effusions. The heart is mildly enlarged. A few bibasilar linear densities favor subsegmental atelectasis. Otherwise, no focal lung consolidations to suggest a pneumonia. No evidence for pulmonary edema. Multiple dilated gas-filled loops of large and small bowel are again seen throughout the abdomen. The dilated loops of large bowel have slightly improved. The dilated loops of small bowel have slightly progressed. There are small scattered fluid levels seen within the large and small bowel. These findings favor a persistent ileus. IMPRESSION: 1. Mild cardiomegaly. Otherwise, no acute process within the chest. 2. Dilated gas-filled loops of large and small bowel are again seen throughout the abdomen described above. This favors an ileus. ACT 112: Negative or not required by law. Electronically signed by: Teto Bridges M.D. 10/19/2022 2:47 PM Resident Activity Tracking Resident Involvement: Resident Care Provided Care Provided: Adult Hospital Medicine (2) Ankle fracture, right Encounter type: initial encounter Fracture type: open
[2022-10-19] MEDS: traZODone HCL 50 MG TAB PO SCH (20:23)
[2022-10-20] MEDS: ENOXAPARIN INJ 40 MG/0.4 ML SYR SQ SCH ×2 (05:56→17:58)
[2022-10-20] MEDS: CEFDINIR 300 MG CAP PO SCH ×2 (05:58→19:38)
[2022-10-20 07:12] LABS: Basophils # (auto) 0.07 K/uL (0-0.2); Basophils % (auto) 0.7 %; Eosinophils # (auto) 0.54 K/uL (0-0.50); Eosinophils % (auto) 5.1 %; Hematocrit (blood only) 29.8 % (37.0-47.0); Hemoglobin 9.9 g/dl (12.0-16.0); Immature Granulocytes # (auto) 0.16 K/uL (0.01-0.20); Immature Granulocytes % (auto) 1.5 %; Lymphocytes # (auto) 1.77 K/uL (1.2-3.4); Lymphocytes % (auto) 16.7 %; Mean Corpuscular Hemoglobin 30.4 pg (25.0-34.0); Mean Corpuscular Hgb Conc 33.2 g/dL (32.0-36.0); Mean Corpuscular Volume 91.4 fL (80.0-100.0); Monocytes # (auto) 0.87 K/uL (0.11-0.59); Monocytes % (auto) 8.2 %; Neutrophils # (auto) 7.19 K/uL (1.40-6.50); Neutrophils % (auto) 67.8 %; Platelet Count 351 K/uL (130-400); RDW Coefficient of Variation 13.7 % (11.5-14.5); RDW Standard Deviation 46.5 fL (36.4-46.3); Red Blood Count 3.26 M/uL (4.20-5.40)
[2022-10-20 07:24] LABS: Albumin Globulin Ratio 1.2 (0.9-2); Albumin Level 3.4 gm/dl (3.4-5.0); Bilirubin,Total 0.8 mg/dl (0.2-1.0); Creatinine Clr Calc Pharmacy 72.1 ml/min; Est GFR (African American) 57.1 ml/min; Est GFR (Non-African American) 49.2 ml/min; Globulin 2.8 gm/dl (2.5-4.0); Potassium 3.8 mmol/L (3.5-5.1); Total Protein 6.2 gm/dl (6.0-8.3)
--- NOTE | 2022-10-20 07:59 | Hospitalist Progress Note ---
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 - Continues to have no nausea/vomiting. Passing gas. - Electrolytes stable. - d/c narcotics/vistaril and held CCB -amlodipine - Repeat chest/abdominal x-ray on 10/19 significant for persistent ileus - Will continue regular diet as patient appears to be tolerating food, monitor for GI sx - Ambulate - activity order #Diarrhea: - Multiple watery stools per day x 4 days - Improving - Cdiff testing negative #Urinary retention - Orantes catheter - 24 hour urine output 1325mL - Reporting lack of urinary urge - Lumbar spine MRI negative for acute compression - consider voiding trial once ambulating well #UTI: - WBC 10.60 today - Urine cx >100k G neg bacilli - Continue PO cefdinir #R-ankle fracture 10/09 ORIF right bimalleolar fracture - Pain control tylenol, prn. - Zofran PRN - Orthopedic sign off case, the will follow outpatient in 10-14 days - PT/OT: Non weight bearing right lower extremity. Weight bearing as tolerated left leg with knee immobilizer on. - Case management on case, [facility] bed available, awaiting insurance approval - Vitamin D lvl: 14.4, start ergocalciferol 50,000 units Qweekly #Acute blood loss anemia -stable at 9.9 #GERD: - Continue Pantoprazole 40mg QD #Generalized anxiety ds - On venlafaxin, Trazodone - [facility] ct for support. #L-knee dislocation s/p reduction in ED #T2DM ISS while inpatient Last A1c 6.1 #Diabetic nephropathy at baseline #HTN Norvasc 10 mg q Daily - hold (10/15) for ileus Atenolol 50 mg q daily Lisinopril 40 mg q daily #DCIS w/breast comedonecrosis New diagnosis, stable follow-up Dr. Soria outpatient Disposition: MedSurg Diet: Advance as tolerated DVT prophylaxis: Lovenox 40BID CODE STATUS: Full code Admission and Anticipated Discharge Date Admission Date: October 08, 2022 Supervising Physician Co-Signing Physician Notes Attending Attestation and Progress Note: Pt seen/examined, chart reviewed, care plan d/w PGY1 Dr Ciaran Nieto. feeling better no new complaints updated to the best of my ability. vitals noted No distress. Breathing unlabored. Right ankle in a splint/cast, left knee in a splint as well. A/P: 1. right ankle fracture s/p ORIF; cont NWB status; replace low vit D 2. e.coli UTI - Cefdinir 3. ileus - appears to be improving 4. left knee dislocation s/p reduction; cont knee immobilizer 5. leukocytosis - likely 2nd to #2, #3 - trend 6. DVT proph - cont lovenox 40mg BID rehab post-d/c stable for discharge patient asks that Dr Jones revisit with her re: right ankle fracture and plan of care Subjective Pt evaluated at bedside, discussed results of repeat KUB with patient. She notes that her appetite has actually improved despite imaging that indicated persistent ileus. Denies nausea/vomiting. Diarrhea still present but improving. Review of Systems Review of Systems: All systems reviewed & are unremarkable except as noted in HPI & below Physical Exam Constitutional: WD/WN, vitals as above no acute distress Respiratory: normal respiratory effort, lungs clear to auscultation Cardiovascular: RRR, no murmur, no edema Gastrointestinal (Abdomen): mildly hypoactive bowel sounds, no tenderness to palpation Musculoskeletal: 4/5 strength in hip flexion bilaterally Skin: no rashes, warm and dry Results & Data Results & Data Vital Signs (Past 12 Hours) Vital Signs Temp Pulse Resp BP Pulse Ox O2 Del Method 10/20/22 07:39 36.6 C 81 17 151/84 H 98 Room Air 10/19/22 19:59 36.8 C 81 16 135/80 96 Room Air Resident Activity Tracking Resident Involvement: Resident Care Provided Care Provided: Adult Hospital Medicine (1) Ankle fracture, right Encounter type: initial encounter Fracture type: open
--- NOTE | 2022-10-20 08:09 | Billing Data ---
Date of Service October 19, 2022 Coding Level of Care Code 67557 SUB INP/OBS CARE
[2022-10-20] MEDS: INSULIN ASPART PER UNIT CHARGE SC SCH ×4 (08:47→21:20)
[2022-10-20] MEDS: LANTUS PER UNIT CHARGE SQ SCH ×2 (08:49→21:21)
[2022-10-20] MEDS: MULTIVITAMIN TAB PO SCH (09:07)
[2022-10-20] MEDS: VENLAFAXINE HCL XR 150 MG CAPXR PO SCH (09:07)
[2022-10-20] MEDS: lisinopril 40 MG TAB PO SCH (09:07)
[2022-10-20] MEDS: PANTOprazole 40 MG TAB PO SCH (09:08)
[2022-10-20] MEDS: ATENOLOL 50 MG TABLET PO SCH (09:08)
--- NOTE | 2022-10-20 19:31 | Billing Data ---
Date of Service October 20, 2022 Coding Level of Care Code 01866 SUB INP/OBS CARE
[2022-10-20] MEDS: traZODone HCL 50 MG TAB PO SCH (21:21)
[2022-10-21] MEDS: ENOXAPARIN INJ 40 MG/0.4 ML SYR SQ SCH ×2 (05:49→18:26)
[2022-10-21] MEDS: CEFDINIR 300 MG CAP PO SCH ×2 (07:37→20:36)
[2022-10-21] MEDS: INSULIN ASPART PER UNIT CHARGE SC SCH ×4 (08:00→20:36)
[2022-10-21] MEDS: LANTUS PER UNIT CHARGE SQ SCH ×2 (08:01→20:37)
[2022-10-21] MEDS: ATENOLOL 50 MG TABLET PO SCH (08:27)
[2022-10-21] MEDS: lisinopril 40 MG TAB PO SCH (08:28)
[2022-10-21] MEDS: MULTIVITAMIN TAB PO SCH (08:28)
[2022-10-21] MEDS: PANTOprazole 40 MG TAB PO SCH (08:29)
[2022-10-21] MEDS: VENLAFAXINE HCL XR 150 MG CAPXR PO SCH (08:29)
--- NOTE | 2022-10-21 09:28 | Communication Note ---
Date of Service: October 21, 2022 Discussed future plans with patient this AM. Current splint will need to be removed in the next couple of days to view the wounds and remove sutures if the wounds are healing well. She will be put back into a splint in the interim until seen back in the office. Continues to wear the immobilizer on the LLE for her patellar dislocation. Will discuss further with Dr Jones about transitioning to something less combersome and starting PT in the future, but for now, continue use of immobilizer with ambulation. WBAT on LLE. NWB RLE.
--- NOTE | 2022-10-21 11:04 | Hospitalist Progress Note ---
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 - No nausea/vomiting. Passing gas, having bowel movements. - Electrolytes stable. - d/c narcotics/vistaril and held CCB -amlodipine - Repeat chest/abdominal x-ray on 10/19 significant for persistent ileus - Will continue regular diet as patient appears to be tolerating food and has progressively better appetite, monitor for GI sx - Ambulate - activity order #Diarrhea: - Multiple watery stools per day x 4 days - Resolved - Cdiff testing negative #Urinary retention - Orantes catheter - 24 hour urine output 1700mL - Reporting lack of urinary urge - Lumbar spine MRI negative for acute compression - consider voiding trial once ambulating well #UTI: - WBC count trending downward - Urine cx >100k G neg bacilli - Continue PO cefdinir #R-ankle fracture 10/09 ORIF right bimalleolar fracture - Pain control tylenol, prn. - Zofran PRN - Orthopedic sign off case, they will follow outpatient in 10-14 days - PT/OT: Non weight bearing right lower extremity. Weight bearing as tolerated left leg with knee immobilizer on. - Case management on case, [facility] bed available, awaiting insurance approval - Vitamin D lvl: 14.4, continue ergocalciferol 50,000 units Qweekly #Acute blood loss anemia -stable at 9.9 #GERD: - Continue Pantoprazole 40mg QD #Generalized anxiety ds - On venlafaxin, Trazodone - [facility] for support. #L-knee dislocation s/p reduction in ED #T2DM ISS while inpatient Last A1c 6.1 #Diabetic nephropathy at baseline #HTN Norvasc 10 mg q Daily - hold (10/15) for ileus Atenolol 50 mg q daily Lisinopril 40 mg q daily #DCIS w/breast comedonecrosis New diagnosis, stable follow-up Dr. Soria outpatient Disposition: MedSurg Diet: Advance as tolerated DVT prophylaxis: Lovenox 40BID CODE STATUS: Full code Admission and Anticipated Discharge Date Admission Date: October 08, 2022 Supervising Physician Co-Signing Physician Notes Attending Attestation and Progress Note: Pt seen/examined, chart reviewed, care plan d/w PGY1 Dr Ciaran Nieto. feeling better overall able to eat OK not much appetite but no postprandial pain or nausea. vitals noted No distress. Breathing unlabored. Right ankle in a splint/cast, left knee in a splint as well. A/P: 1. right ankle fracture s/p ORIF; cont NWB status; replace low vit D 2. e.coli UTI - complete abx w cefdinir 3. ileus - appears to be improving, toelrating PO well, suspect it will take a while for appetite to truly come back 4. left knee dislocation s/p reduction; cont knee immobilizer 5. leukocytosis - likely 2nd to #2, #3 - trend periodically 6. DVT proph - cont lovenox 40mg BID rehab post-d/c stable for discharge Subjective Patient evaluated at bedside, brighter affect today. She notes that her appetite continues to improve, notes some bloating but denies abdominal pain, nausea and vomiting. Has been having regular bowel movements, not certain of the consistency. Pain is well controlled. Updated patient on pending status of SNF placement. Pt happy that she was able to speak with someone from Dr. Jones's office, got all of her ortho questions answered. Review of Systems Review of Systems: All systems reviewed & are unremarkable except as noted in HPI & below Physical Exam Constitutional: WD/WN, vitals as above well nourished; no acute distress Respiratory: normal respiratory effort, lungs clear to auscultation Cardiovascular: RRR, no murmur, no edema Gastrointestinal (Abdomen): normal bowel sounds, soft, nontender, no hepatosplenomegaly Musculoskeletal: LE strength 4/5 bilaterally, neurovascularly intact Skin: no rashes, warm and dry Results & Data Results & Data Vital Signs (Past 12 Hours) Vital Signs Temp Pulse Resp BP Pulse Ox O2 Del Method 10/21/22 07:34 36.9 C 74 16 156/80 H 98 Room Air Resident Activity Tracking Resident Involvement: Resident Care Provided Care Provided: Adult Hospital Medicine (1) Ankle fracture, right Encounter type: initial encounter Fracture type: open
--- NOTE | 2022-10-21 17:47 | Billing Data ---
Date of Service October 21, 2022 Coding Level of Care Code 00140 SUB INP/OBS CARE
[2022-10-21] MEDS: traZODone HCL 50 MG TAB PO SCH (20:37)
[2022-10-22] MEDS: ENOXAPARIN INJ 40 MG/0.4 ML SYR SQ SCH (05:54)
[2022-10-22] MEDS: CEFDINIR 300 MG CAP PO SCH (05:56)
[2022-10-22 06:47] LABS: Hematocrit (blood only) 30.1 % (37.0-47.0); Mean Corpuscular Hemoglobin 30.4 pg (25.0-34.0); Mean Corpuscular Hgb Conc 33.2 g/dL (32.0-36.0); Mean Corpuscular Volume 91.5 fL (80.0-100.0); Mean Platelet Volume 10.1 fL (9.4-12.4); Platelet Count 343 K/uL (130-400); RDW Coefficient of Variation 13.9 % (11.5-14.5); RDW Standard Deviation 46.7 fL (36.4-46.3); Red Blood Count 3.29 M/uL (4.20-5.40); White Blood Count 9.92 K/ul (4.8-10.8)
[2022-10-22] MEDS: LANTUS PER UNIT CHARGE SQ SCH (08:14)
[2022-10-22] MEDS: INSULIN ASPART PER UNIT CHARGE SC SCH ×2 (08:15→12:32)
[2022-10-22] MEDS: ATENOLOL 50 MG TABLET PO SCH (08:20)
[2022-10-22] MEDS: lisinopril 40 MG TAB PO SCH (08:20)
[2022-10-22] MEDS: PANTOprazole 40 MG TAB PO SCH (08:21)
[2022-10-22] MEDS: MULTIVITAMIN TAB PO SCH (08:21)
[2022-10-22] MEDS: VENLAFAXINE HCL XR 150 MG CAPXR PO SCH (08:21)
--- NOTE | 2022-10-22 15:09 | Orthopedic Progress Note ---
Date of Service October 22, 2022 Assessment & Plan (1) Ankle fracture, right: Plan: Postop day #13 ORIF right bimalleolar fracture, hospital day #3 left knee patellar dislocation -Pain management as written -DVT prophylaxis SCDs, aspirin 81 mg -PT/OT: Nonweightbearing right lower extremity. Weightbearing as tolerated left leg with knee immobilizer on. -Discharge planning: nursing home facility -Please follow-up with Dr. Jones in 2 weeks (2) Dislocation of patella, left, closed: Admission and Anticipated Discharge Date Admission Date: October 08, 2022 Subjective Postop day 13 Patient lying in bed awake and alert. No complaints today. States that she is going to be leaving today to go to a detention facility. Physical Exam Physical Exam: Splint was removed today. Dressings taken down. Medial and lateral wounds look very benign minimal swelling at this time. Audelia removed Steri-Strips applied. New dressing applied and a new posterior splint was also applied. Patient tolerated this well. Results & Data Vital Signs (Past 12 Hours) Vital Signs Temp Pulse Resp BP Pulse Ox O2 Del Method 10/22/22 05:54 37 C 81 16 145/83 H 97 Room Air (1) Ankle fracture, right Encounter type: initial encounter Fracture type: open
--- NOTE | 2022-10-22 15:52 | Discharge Summary ---
Date of Service October 22, 2022 Admission HPI Per Admitting Provider Patient is a 62-year-old female with past medical history of obesity, DCIS, hypertension, controlled DM 2, diabetic nephropathy who presents to the hospital for evaluation of ankle injury. Unfortunately, it seems that the patient was at home when she was walking on the hard floor and her 4-year and she slipped on urine that was left by her dog that she did not see. She fell to the floor and does not recall exactly what happened, however, she recognized that she had immediate ankle pain on the right and left knee pain with gross deformities of both. She came to the emergency department via EMS for further treatment and recommendations. ED course: Patient was brought back evaluated by one of our ED providers. She had multiple x-rays that confirmed trimalleolar fracture with mortise disruption and open component of the medial malleolus on the right ankle. There is also lateral knee dislocation on the left knee. The case was discussed with Dr. Jones, the on-call orthopedic surgeon, who recommended splint placement and reduction of the fracture who will perform operative intervention on 10/08/2022. See ED provider notes for specific details regarding reduction and splinting. Lab work was overall unremarkable. Patient was given pain medication and the hospitalist service was consulted for admission to the hospital for further management with orthopedic consultation. Admission Exam Per Admitting Provider Constitutional: WD/WN, vitals as above well developed, well nourished, coope rative and comfortable Eyes: + anicteric sclerae Neck: trachea midline, no thyromegaly Respiratory: normal respiratory effort, lungs clear to auscultation Cardiovascular: RRR, no murmur, no edema Gastrointestinal (Abdomen): normal bowel sounds, soft, nontender, no hepatosplenomegaly Musculoskeletal: Head/Neck/Chest: normocephalic and head atraumatic There is an obvious deformity of the right ankle consistent with open fracture with a small open wound just superior to the medial malleolus with no active bleeding. There is also a lateral patellar dislocation on the left with ecchymoses on the medial aspect of the left knee. Normal capillary refill of both great toes. Palpable pedal pulses bilaterally. Skin: no rashes, warm and dry Neurologic: awake Psychiatric: Orientation: alert and oriented x 3 Principal Diagnosis right ankle fracture Discharge Exam Constitutional WD/WN, vitals as above healthy appearing; no acute distress Respiratory normal respiratory effort, lungs clear to auscultation Cardiovascular RRR, no murmur, no edema Gastrointestinal (Abdomen) normal bowel sounds, soft, nontender, no hepatosplenomegaly Musculoskeletal 4/5 strength bilaterally in hip flexion, neurovascular status intact Skin no rashes, warm and dry Discharge Data Allergies Allergy/AdvReac Type Severity Reaction Status Date / Time No Known Allergies Allergy Verified 10/07/22 22:54 Consultations 10/08/22 01:18 Consult Orthopedic Surgery Routine ED Decision to Admit Stat 10/14/22 13:59 Consult Behavioral Health Liaison Routine 10/20/22 19:31 Consult Orthopedic Surgery Routine Procedures Performed Operation Date: 10/09/22 10:20 Actual Procedures p Right Ankle Open Reduction Internal Fixation (Right) - Jaime Jones, Ordered Studies 10/08/22 07:15 CT ankle RT wo con Routine 10/09/22 16:11 US - OR guided needle placemen Stat 10/09/22 17:00 FL ankle RT 2V Routine 10/16/22 13:56 MRI Lumbar Spine [MR lumbar spine wo con] Stat Hospital Course (1) Ankle fracture, right: (2) Left knee dislocation: (3) Type 2 diabetes mellitus: (4) Diabetic nephropathy: (5) Hypertension: (6) 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 - Zofran PRN given - PT/OT evaluated patient and made the following recommendations: Non weight bearing right lower extremity. Weight bearing as tolerated left leg with knee immobilizer on. - Vitamin D lvl was 14.4, discharged on ergocalciferol 50,000 units Qweekly - Case management worked to set up placement, patient discharged to [facility] - Orthopedic follow up outpatient #Ileus - Serial KUBs showed multiple dilated gas-filled loops of small and large bowel, suggestive of ileus - presumed to be post-anesthesia. - No nausea/vomiting. - Electrolytes were stable. - narcotics/vistaril discontinued and amlodipine held until ileus resolved - Pt encouraged to ambulate - Stool output resumed, appetite steadily improved. #Diarrhea: - had multiple watery stools per day x 4 days - Resolved - Cdiff testing negative #Urinary retention - Patient reported lack of urinary urge, leary catheter placed - Lumbar spine MRI negative for acute compression - At time of discharge, patient reported feeling urge to void most of the time #UTI: - WBC count elevated, UA suggestive of UTI, WBC trended downward over next several days - Urine cx >100k G neg bacilli - Pt treated with IV ceftriaxone, transitioned to PO cefdinir -discharged with 1 remaining dose, to be given in the evening on 10/22 #Acute blood loss anemia -Stabilized. Last hemoglobin check 9.9 #GERD: - Continue Pantoprazole 40mg QD #Generalized anxiety ds - On venlafaxin, Trazodone. Continue - [facility] liason visited patient on multiple occasions for support. #L-knee dislocation s/p reduction in ED #T2DM ISS while inpatient Last A1c 6.1 #Diabetic nephropathy at baseline, follow up with PCP post-discharge #HTN Norvasc 10 mg q Daily - held during ileus Atenolol 50 mg q daily Lisinopril 40 mg q daily #DCIS w/breast comedonecrosis New diagnosis, stable follow-up Dr. Soria outpatient following discharge Total Time Total Time Spent Total Time Spent (In Minutes): <30 Discharge Plan Discharge Items Patient Disposition: Transfer Jail Fac Reason For Visit: ANKLE FX Discharge Diagnosis: Right bimalleolar ankle fracture/left patellar dislocation. Activity: Per Instructions section Weightbearing Comment: No weight on right foot; as tolerated on left foot with knee immobilizer Non-emergency contact: Surgeon Call non-emergency contact if: you have any medication questions, your pain is not controlled, your temperature is above 101.5, your wound has increased redness and your wound has increased drainage Follow-up/Referrals: Jaime Joens DO [Surgeon] - (Follow-up with Dr. Jones in 2 weeks for wound check and transition from splint to cam walker.) Earnest West DO [Primary Care Provider] - Diet: Carb Consistent or DM2 Addtl Attending Provider Instructions: You were initially admitted for surgical repair of your right ankle. During the course of your hospitalization, you developed an ileus, which is the reason why you were not having regular bowel movements early on. Additionally, you had a urinary tract infection. You were started on a course of antibiotics to address the urinary tract infection. Following discharge, you will be transferred to a [facility] facility. The following are my discharge recommendations: - Please take your last dose of antibiotics tonight (10/22) -Please follow up with ortho outpatient as directed Addtl Windows Admin Provider Instructions: Please continue to use the immobilizer on her left knee for ambulation. You may be weightbearing as tolerated on your left lower extremity. ACTIVITY RECOMMENDATIONS: *You are to be nonweightbearing on the right lower extremity. You can place as much weight as you are able to with the knee immobilizer on on your left leg. SPECIAL CARE INSTRUCTIONS: * If you note that the dressing has new drainage, please call the office * Some swelling is natural especially after walking. When resting, keep your foot elevated above the level of your heart. * Call the doctor's office at if you notice increased drainage, fever over 101 degrees F. or severe constant pain. BANDAGE: * Leave bandage/cast in place on the right ankle until follow-up appointment. You may remove left knee immobilizer for hygiene purposes. * Keep bandage/cast dry at all times. FOLLOW UP VISIT: If appointment is not already scheduled: Please call [facility] to make a follow-up appointment with Dr. Jones in 2 weeks for a wound check and transition from a splint to a boot. . Pending Studies at Discharge: No Stand-Alone Forms: My [facility] Skilled Items Patient informed of condition?: Yes DNR: No Discharge Level of Care: Skilled Communicable Disease: No Discharge Prognosis: Stable Lines: None Urinary Catheter: Yes (sometimes required cath for urinary retention) Medications and DC Order Prescriptions: New ergocalciferol (vitamin D2) 1,250 mcg (50,000 unit) Capsule 50,000 unit PO Q7D@0900 Qty: 7 0RF cefdinir 300 mg capsule 300 mg PO ONCE 1 Days Qty: 1 0RF Continued venlafaxine 150 mg capsule,extended release 24hr 150 mg PO DAILY Trulicity 1.5 mg/0.5 mL pen injector 3 mg subcut WK Rx Instructions: SATURDAYS trazodone 50 mg tablet 50 mg PO HS magnesium oxide 400 mg (241.3 mg magnesium) tablet 400 mg PO DAILY amlodipine 10 mg tablet 10 mg PO DAILY lisinopril 40 mg Tablet 40 mg PO DAILY atenolol 50 mg tablet 50 mg PO DAILY multivitamin Tablet 1 tab PO DAILY acetaminophen [Tylenol Extra Strength] 500 mg Tablet 1,000 mg PO DIRECTED PRN (Reason: Pain) diphenhydramine-acetaminophen [Tylenol PM Extra Strength] 25-500 mg Tablet 1 tab PO HS PRN (Reason: Sleep) Discharge Orders: Discharge Order (Routine); Ordered 10/22/22 Ordered By: Ciaran Yeboah/Other Patient Handouts: Ileus, ED Patellar Dislocation/Subluxation Admission Data Admit Date/Time: 10/08/22 01:47 Attending Provider: Dayo Schumacher Admit Provider: Earnest West Primary Care Provider: Earnest West Other Providers: Ernie Villalba ; Jaime Jones ; [facility] ; Dayo Schumacher ; [facility] ; [facility], ; [facility] Other Interventions: Discharge Summary Assessment (RN) Last Done: 10/22/22 15:33 Supervising Physician Co-Signing Physician Notes Attending Attestation and Progress Note: Pt seen/examined, chart reviewed, care plan d/w PGY1 Dr Ciaran Nieto. ni feels better, feels up to SNF/rehab A/P: 1. right ankle fracture s/p ORIF; cont NWB status; replace low vit D 2. e.coli UTI - complete abx w cefdinir 3. ileus - appears to be improving, tolerating PO well, suspect it will take a while for appetite to truly come back 4. left knee dislocation s/p reduction; cont knee immobilizer 5. leukocytosis - likely 2nd to #2, #3 - resolved 6. DVT proph - on lovenox 40mg BID rehab post-d/c stable for discharge Resident Activity Tracking Resident Involvement: Resident Care Provided Care Provided: Adult Hospital Medicine
--- NOTE | 2022-10-22 19:53 | Billing Data ---
Date of Service October 22, 2022 Coding Level of Care Code 50240 IN/OBS DISCH 30 MIN/LESS
== END 2022-10-22 16:34 | DRG 493 ==
LOC: ED 22:26 → 3E 10-08 01:47 → SUATTDRO 10-08 01:47 → 3E 10-08 02:50